=== PATIENT | male | born 1995 | race Caucasian/White ===

== ENCOUNTER 2023-10-15 20:25 | Emergency (ER) | payer OTHER, SELFPAY ==
[2023-10-15 20:26] VITALS: BP 161/97
--- NOTE | 2023-10-15 21:30 | ED.GENMED ---
History of Present Illness
General
Chief Complaint: Abdominal Symptoms
Source: patient
Exam Limitations: none
Time Seen by Provider: 10/15/23 21:06
Travel History
Have you had any contact with someone who has COVID-19?: No
Do you have any symptoms of coronavirus? Fever > 100 degrees, chills, cough, shortness of breath, sore throat, loss of taste or smell, muscle aches, or headache?: No
History of Present Illness
History of Present Illness:
This is a 28 year old male that comes in with c/o vomiting. Sates that he has been vomiting for the past couple of days. States that his sides are sore and his abd hurts. States that he also had diarrhea yesterday. States that he is nauseated and
had chills. States that he has not smoked any marijuana for a couple of days. Denies any fever, chest pain, SOB, headache, dizziness, urinary burning.
Past History
Past History
ED Past Medical History: Psychiatric (Anxiety) and Other (Constipation, )
ED Past Surgical History: None
Social History
Tobacco: Non-smoker
Alcohol: None
Drug: Marijuana (daily, cutting back)
Personal: Single
Living: with family
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
Family History
Family History: Other (Noncontributory)
Review of Systems
Review of Systems
All Other Systems: ROS reviewed and negative except as documented in HPI and ROS
Constitutional: Reports chills; Denies fever
EENT: Reports no symptoms
Respiratory: Reports no symptoms; Denies cough or trouble breathing
Cardiac: Reports no symptoms; Denies chest pain
ABD/GI: Reports abdominal pain, nausea, vomiting and diarrhea
: Reports no symptoms; Denies dysuria, frequency or urgency
Musculoskeletal: Reports no symptoms
Skin: Reports no symptoms
Neurological: Reports no symptoms; Denies dizzy or headache
Psychiatric: Reports no symptoms
Phy Exam
General Physical Exam
General Presentation: no apparent distress
General age: appears stated age
General Skin: warm and dry
General Habitus: normal
General Mental: alert and anxious
General Hydration: appears well hydrated
ENT Exam
ENT Exam: TM's normal, pharynx normal and neck supple
Eye Exam
Eye Exam: EOMI
Cardiovascular Exam
Cardiovascular Exam: regular rate/rhythm, no edema, no murmur and normal peripheral pulses
Pulmonary Exam
Pulmonary Exam: lungs clear, no respiratory distress, no rales, chest non tender, no crackles, no rhonchi, no wheezing and no cough
Gastrointestinal Exam
Gastrointestinal Exam: normal bowel sounds, non tender, soft, no organomegaly, no pulsatile mass and non distended
Musculoskeletal Exam
Musculoskeletal Exam: full ROM and no edema
Skin Exam
Skin Exam: normal color, warm/dry, no rash and no petechia
Psychiatric Exam
Psychiatric Exam: normal mood/affect
Course
Orders/Labs/Results
Orders:
Orders
10/15/23 21:23
0.9% Sodium Chloride 1000 ml [Nss] 1,000 ml IV BOLUS
Diphenhydramine [Benadryl] 25 mg IV NOW STA
Ondansetron Injectable [Zofran] 8 mg IV NOW STA
10/15/23 21:38
Complete Blood Count/With Diff Urgent
Comprehensive Metabolic Panel Urgent
10/15/23 22:42
Famotidine [Pepcid] 20 mg IV NOW STA
Haloperidol Lactate [Haldol] 2 mg IV NOW STA
10/15/23 22:59
Electrocardiogram (*1) Urgent
Reason for Study: QTc Monitoring
EKG- Treatment ONCE
10/16/23 00:23
CT Abd/pelvis W Iv Cont Urgent
Comment:
Reason For Exam: Generalized abd pain.
10/16/23 00:34
0.9% Sodium Chloride 1000 ml [Nss] 1,000 ml IV BOLUS
Abnormal Lab Results
10/15/23
21:38
WBC 28.1 H 10^3/uL
(4.8-10.8)
MCV 78.7 L fL
(80.0-94.0)
Plt Count 409 H 10^3/uL
(130-400)
MPV 10.5 H fL
(7.4-10.4)
Abs Immat Gran (auto) 0.2 H 10^3/uL
(0-0.05)
Absolute Neuts (auto) 23.8 H 10^3/uL
(1.4-6.5)
Absolute Monos (auto) 2.2 H 10^3/uL
(0.1-0.6)
Immature Gran % 0.6 H %
(0-0.5)
Neutrophils % 84.4 H %
(42.2-75.2)
Lymphocytes % 6.9 L %
(20.5-51.1)
Sodium 131 L mmol/L
(135-145)
Potassium 3.4 L mmol/L
(3.5-5.1)
Chloride 86 L mmol/L
(98-107)
BUN 25 H mg/dl
(9-20)
Creatinine 1.8 H mg/dL
(0.7-1.3)
Glucose 122 H mg/dl
(70-99)
Calcium 10.9 H mg/dl
(8.4-10.2)
ALT 52 H U/L
(0-50)
Total Protein 9.0 H g/dl
(6.3-8.2)
Albumin 5.5 H g/dl
(3.5-5.0)
10/15/23 21:38
10/15/23 21:38
Leukocytosis, Plt slightly elevated, Sodium slightly low. Chloride low. Dehydration. Glucose nonfasting. calcium slightly elevated. AST slightly elevated. Total protein elevation. Albumin slightly elevated. Anion gap 20
Vital Signs
Initial and Last Documented VS:
Initial Vital Signs
Temp Pulse Resp BP Pulse Ox
98.9 F 121 16 161/97 98
10/15/23 20:26 10/15/23 20:26 10/15/23 20:26 10/15/23 20:26 10/15/23 20:26
Last Documented Vital Signs
Temp Pulse Resp BP Pulse Ox
98.9 F 103 18 121/76 95
10/15/23 20:26 10/16/23 00:16 10/16/23 00:16 10/16/23 00:16 10/16/23 00:16
Sole Dyer consulted with Physician
Sole Dyer consulted with physician?: Yes
Name of Physician Consulted: Dr Olson
MDM/Problems Addressed
Differential Diagnosis Includes:
Viral GI syndrome, Marijuana use
MDM/Problems Addressed:
This is a 28 year old male that comes in with c/o vomiting for the past 2 days. states that he has been cutting back on his marijuana useage and that he has not smoked in2 days. States that he has been vomiting for 2 days.
Will check labs, Give IV fluids and Antiemetics.
Back into see patent. Patient states that he is still nauseated and he just vomited. States that he has had Haldol in the past and that this really helps. Reassessed patient abd and patient is nontender. Explained that his WBC are elevated but this
is most likely from all the vomiting. Will recheck after medicated
Back into see patient. Patient states that he is feeling much better and ready to go home. States that he does have Zofran at home for any further nausea/ vomiting. Patient to return with any concerns.
Discussed labs with Dr. Olson and patient complaints. State that she would prefer patient has a CT of the abd/pelvis before discharge due to elevated WBC's. Will give second liter of fluid and get CT scan.
Chronic conditions affecting care: Psychiatric illness
Acute Exacerbation and/or Progression of Chronic Illness: Psychiatric illness
*Radiology
Radiology exam reviewed: radiology read reviewed (CT night hawk- No acute ab normality within the abd or pelvis. No bowel obstruction. Normal gallbladder and appendix. Incidentals: No obstructive uropathy. No hepatic or pancreatic mass. No abd
aortic aneurysm. No acute osseous abnormality. No acute abnormality with in the visualized lungs. No ) and other (CT jw -No acute abnormality within the visualized soft tissues)
*Pulse Oximetry
Patient hypoxic: no
*EKG
Interpreted by ED Provider?: NA
Rate: EKG- N/A
*Regrader Interpretation
Rate: Regrader- N/A
*Critical Care Note
Total Time (30-74mins, 75-104mins- exclusive of procedures): Not Applicable
ED Attending Note
-
Portions of this chart may have been created with voice recognition software.� Occasional wrong word or��sound alike� substitutions may have occurred due to the inherent limitations of voice recognition software.
Discharge Plan
Departure
Patient Disposition: Home (Routine Discharge)
Date of Disposition: 10/16/23
Time of Disposition: 00:12
Patient with high blood pressure during this ER visit?: Yes
Condition: Good
Covid-19: Not Applicable
Discharge Problem:
Nausea & vomiting, Dehydration
Instructions: Dehydration, Adult (DC), Nausea and Vomiting, Adult (DC), BLOOD PRESSURE
Prescriptions:
No Action
famotidine 20 mg tablet
20 mg PO DAILYPRN PRN (Reason: GERD)
polyethylene glycol 3350 [Miralax] 17 gram Powder In Packet
17 g PO PRN PRN (Reason: constipation)
Referrals:
Eugene Connolly MD [Family Provider] - Call in 1-3 days for appt
Activity Restrictions/Additional Instructions:
As discussed, your blood work shows that your WBC are elevated. This is most likely due to all the vomiting or a viral syndrome. Please increase your water intake to 8-8oz glasses daily but take it slow. Use the Zofran that you have at home for
nausea/ vomiting. Follow up with the family doctor for recheck. IF YOU HAVE ANY OTHER CONCERNS PLEASE RETURN TO THE EMERGENCY ROOM.
Interventions
Interventions:
*Risk Screen - Suicide Last Done: 10/15/23 20:26
*General Assessment Last Done: 10/15/23 23:35
*Neglect/Abuse Screening Last Done: 10/15/23 20:26
ED- Fall Risk Assessment Last Done: 10/15/23 23:35
*ED COVID-19 Vaccine History Last Done: 10/15/23 20:26
RF-Torsos-Hkgjktxmyt Assessment Last Done: 10/15/23 21:43
[2023-10-15] MEDS: NSS 1000 IV (21:38)
[2023-10-15] MEDS: BENADRYL 25 MG IV (21:39)
[2023-10-15] MEDS: ZOFRAN 8 MG IV (21:39)
[2023-10-15 21:48] LABS: % Basophils 0.2 % (0-2); % Immature Granulocytes 0.6 % (0-0.5); % Lymphocytes 6.9 % (20.5-51.1); % Monocytes 7.9 % (1.7-9.3); % Neutrophils 84.4 % (42.2-75.2); Absolute Basophils 0.1 10^3/uL (0-0.2); Absolute Immature Granulocytes 0.2 10^3/uL (0-0.05); Absolute Lymphocytes 1.9 10^3/uL (1.2-3.4); Absolute Monocytes 2.2 10^3/uL (0.1-0.6); Absolute Neutrophils 23.8 10^3/uL (1.4-6.5); Hematocrit 43.5 % (39.0-52.0); Hemoglobin 16.1 g/dL (13.0-18.0); Mean Corpuscular Hgb 29.1 pg (27.0-31.0); Mean Corpuscular Volume 78.7 fL (80.0-94.0); Mean Platelet Volume 10.5 fL (7.4-10.4); Nucleated Red Blood Cells % 0 % (-); Platelet Count 409 10^3/uL (130-400); Red Blood Cell Count 5.53 10^6/uL (4.70-6.10); Red Cell Dist. Width 12.7 % (11.5-14.5); White Blood Cell Count 28.1 10^3/uL (4.8-10.8)
[2023-10-15 22:27] LABS: ALT (SGPT) 52 U/L (0-50); AST (SGOT) 38 U/L (17-59); Albumin 5.5 g/dl (3.5-5.0); Alkaline Phosphatase 107 U/L (38-126); Blood Urea Nitrogen 25 mg/dl (9-20); Calcium 10.9 mg/dl (8.4-10.2); Carbon Dioxide 25 mmol/L (22-30); Chloride 86 mmol/L (98-107); Estimated Creatinine Clearance 60 ml/min; Glucose 122 mg/dl (70-99); Potassium 3.4 mmol/L (3.5-5.1); Sodium 131 mmol/L (135-145); Total Bilirubin 1.2 mg/dl (0.2-1.3); eGFR 51.93
[2023-10-15] MEDS: PEPCID 20 MG IV (22:58)
[2023-10-15] MEDS: HALDOL 2 MG IV (22:58)
[2023-10-16 00:16] VITALS: BP 121/76
[2023-10-16] MEDS: NSS 1000 IV (00:34)
[2023-10-16 01:30] VITALS: BP 136/77
== END 2023-10-16 01:31 | disposition home or self-care (01) ==
LOC: EMR 20:25
PROVIDERS: Clinical Nurse Specialist Family Health; EMERGENCY PHYSICIAN Emergency Medicine; FAMILY PHYSICIAN Family Medicine
DX: R11.2 Nausea with vomiting, unspecified (principal); E86.0 Dehydration; R03.0 Elevated blood-pressure reading, without diagnosis of hypertension
CPT/HCPCS: 99285; 96374; 96375 ×3; 96361 ×2; 74177; 80053; 85025; 93005; Q9967

== ENCOUNTER 2023-12-04 04:07 | Emergency (ER) | payer OTHER, SELFPAY ==
[2023-12-04 04:07] VITALS: BMI 29.9
[2023-12-04 04:11] VITALS: BP 180/110
--- NOTE | 2023-12-04 04:38 | ED.GENMED ---
History of Present Illness
<ABBI Segura - Last Filed: 12/04/23 05:57>
General
Chief Complaint: Abdominal Symptoms
Time Seen by Provider: 12/04/23 04:19
Travel History
Have you had any contact with someone who has COVID-19?: No
Do you have any symptoms of coronavirus? Fever > 100 degrees, chills, cough, shortness of breath, sore throat, loss of taste or smell, muscle aches, or headache?: No
History of Present Illness
History of Present Illness:
Pt is a 28-year-old male with past medical history of chronic marijuana and cannabis hyperemesis syndrome presenting to the ER for unremitting nausea and vomiting x 2 days. He states he has not been able to keep food or liquids down and has thrown
up 'hundreds of times today'. He reports intermittent abdominal pain and cramping x 1 day, in addition to cramping throughout his legs. He reports chills and feels like he can only take shallow breaths due to his abdominal pain induced from
vomiting. He denies fever, cough, muscle aches, sore throat, congestion, diarrhea, constipation, or headache. Tried taking a liquid antacid at home without relief. He reports these symptoms occur every few months. He reports regular marijuana use.
Past History
<ABBI Segura - Last Filed: 12/04/23 05:57>
Past History
ED Past Medical History: Psychiatric (Anxiety) and Other (Constipation, )
ED Past Surgical History: None
Social History
Tobacco: Non-smoker
Alcohol: None
Drug: Marijuana (daily, cutting back)
Personal: Single
Living: with family
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
Family History
Family History: Other (Noncontributory)
Review of Systems
<ABBI Segura - Last Filed: 12/04/23 05:57>
Review of Systems
All Other Systems: Not applicable
Constitutional: Reports chills
EENT: Reports no symptoms
Respiratory: Reports trouble breathing
Cardiac: Reports no symptoms
ABD/GI: Reports abdominal pain, nausea and vomiting
: Reports no symptoms
Musculoskeletal: Reports other (muscle cramping)
Skin: Reports no symptoms
Neurological: Reports no symptoms
Endocrine: Reports no symptoms
Hematologic/Lymphatic: Reports no symptoms
Psychiatric: Reports no symptoms
Phy Exam
<ABBI Segura - Last Filed: 12/04/23 05:57>
General Physical Exam
General Presentation: mild distress
General age: appears stated age
General Skin: warm
General Habitus: normal
General Mental: alert
General Hydration: dry mucous membranes and poor skin turgor
ENT Exam
ENT Exam: neck supple and normocephalic
Eye Exam
Eye Exam: PERRL and EOMI
Cardiovascular Exam
Cardiovascular Exam: no edema, no gallop, no murmur, normal peripheral pulses and tachycardia
Pulmonary Exam
Pulmonary Exam: lungs clear, no rales, chest non tender, no crackles, no rhonchi, no wheezing and no cough
Respirations: mild increase in effort
Gastrointestinal Exam
Gastrointestinal Exam: normal bowel sounds, soft, non distended and tender
Palpation: generalized: Mild tenderness
Neurological Exam
Neurological Exam: alert and oriented x3
Musculoskeletal Exam
Musculoskeletal Exam: no edema
Psychiatric Exam
Psychiatric Exam: normal mood/affect
Course
<ABBI Segura - Last Filed: 12/04/23 05:57>
Orders/Labs/Results
Orders:
Orders
12/04/23 04:33
Electrocardiogram (*1) Urgent
Reason for Study: Other
Other Reason for Exam: Respiratory Distress
EKG- Treatment ONCE
IV Insert/Care/Rem.- Treatment PRN
12/04/23 04:44
Famotidine [Pepcid] 20 mg IV NOW STA
Haloperidol Lactate [Haldol] 2 mg IV NOW STA
12/04/23 05:20
0.9% Sodium Chloride 1000 ml [Nss] 1,000 ml IV BOLUS
12/04/23 06:05
CBC/With Diff [Complete Blood Count/With Diff] Urgent
CMP [Comprehensive Metabolic Panel] Urgent
12/04/23 06:21
Diphenhydramine [Benadryl] 50 mg .ROUTE .STK-MED ONE
12/04/23 06:23
Diphenhydramine [Benadryl] 50 mg IV NOW STA
Abnormal Lab Results
12/04/23
06:05
WBC 22.3 H 10^3/uL
(4.8-10.8)
MPV 12.0 H fL
(7.4-10.4)
Abs Immat Gran (auto) 0.1 H 10^3/uL
(0-0.05)
Absolute Neuts (auto) 17.6 H 10^3/uL
(1.4-6.5)
Absolute Monos (auto) 2.3 H 10^3/uL
(0.1-0.6)
Immature Gran % 0.6 H %
(0-0.5)
Neutrophils % 78.9 H %
(42.2-75.2)
Lymphocytes % 10.2 L %
(20.5-51.1)
Monocytes % 10.2 H %
(1.7-9.3)
Sodium 131 L mmol/L
(135-145)
Chloride 86 L mmol/L
(98-107)
Carbon Dioxide 17 L mmol/L
(22-30)
BUN 34 H mg/dl
(9-20)
Creatinine 3.2 H mg/dL
(0.7-1.3)
Glucose 117 H mg/dl
(70-99)
Calcium 11.2 H mg/dl
(8.4-10.2)
AST 60 H U/L
(17-59)
ALT 74 H U/L
(0-50)
Alkaline Phosphatase 127 H U/L
(38-126)
Total Protein 10.5 H g/dl
(6.3-8.2)
Albumin > 6.0 H g/dl
(3.5-5.0)
12/04/23 06:05
12/04/23 06:05
Vital Signs
Initial and Last Documented VS:
Initial Vital Signs
Temp Pulse Resp BP Pulse Ox
97.3 F 133 26 180/110 97
12/04/23 04:11 12/04/23 04:11 12/04/23 04:11 12/04/23 04:11 12/04/23 04:11
Last Documented Vital Signs
Temp Pulse Resp BP Pulse Ox
97.3 F 111 18 135/86 98
12/04/23 04:11 12/04/23 06:00 12/04/23 06:00 12/04/23 06:00 12/04/23 06:00
<Elliot De Oliveira, DO - Last Filed: 12/04/23 07:06>
Orders/Labs/Results
Orders:
Orders
12/04/23 04:33
Electrocardiogram (*1) Urgent
Reason for Study: Other
Other Reason for Exam: Respiratory Distress
EKG- Treatment ONCE
IV Insert/Care/Rem.- Treatment PRN
12/04/23 04:44
Famotidine [Pepcid] 20 mg IV NOW STA
Haloperidol Lactate [Haldol] 2 mg IV NOW STA
12/04/23 05:20
0.9% Sodium Chloride 1000 ml [Nss] 1,000 ml IV BOLUS
12/04/23 06:05
CBC/With Diff [Complete Blood Count/With Diff] Urgent
CMP [Comprehensive Metabolic Panel] Urgent
12/04/23 06:21
Diphenhydramine [Benadryl] 50 mg .ROUTE .STK-MED ONE
12/04/23 06:23
Diphenhydramine [Benadryl] 50 mg IV NOW STA
Abnormal Lab Results
12/04/23
06:05
WBC 22.3 H 10^3/uL
(4.8-10.8)
MPV 12.0 H fL
(7.4-10.4)
Abs Immat Gran (auto) 0.1 H 10^3/uL
(0-0.05)
Absolute Neuts (auto) 17.6 H 10^3/uL
(1.4-6.5)
Absolute Monos (auto) 2.3 H 10^3/uL
(0.1-0.6)
Immature Gran % 0.6 H %
(0-0.5)
Neutrophils % 78.9 H %
(42.2-75.2)
Lymphocytes % 10.2 L %
(20.5-51.1)
Monocytes % 10.2 H %
(1.7-9.3)
Sodium 131 L mmol/L
(135-145)
Chloride 86 L mmol/L
(98-107)
Carbon Dioxide 17 L mmol/L
(22-30)
BUN 34 H mg/dl
(9-20)
Creatinine 3.2 H mg/dL
(0.7-1.3)
Glucose 117 H mg/dl
(70-99)
Calcium 11.2 H mg/dl
(8.4-10.2)
AST 60 H U/L
(17-59)
ALT 74 H U/L
(0-50)
Alkaline Phosphatase 127 H U/L
(38-126)
Total Protein 10.5 H g/dl
(6.3-8.2)
Albumin > 6.0 H g/dl
(3.5-5.0)
12/04/23 06:05
12/04/23 06:05
Vital Signs
Initial and Last Documented VS:
Initial Vital Signs
Temp Pulse Resp BP Pulse Ox
97.3 F 133 26 180/110 97
12/04/23 04:11 12/04/23 04:11 12/04/23 04:11 12/04/23 04:11 12/04/23 04:11
Last Documented Vital Signs
Temp Pulse Resp BP Pulse Ox
97.3 F 111 18 135/86 98
12/04/23 04:11 12/04/23 06:00 12/04/23 06:00 12/04/23 06:00 12/04/23 06:00
<ABBI Segura - Last Filed: 12/04/23 05:57>
MDM/Problems Addressed
Differential Diagnosis Includes:
cannabis hyperemesis syndrome, gastritis, flu, appendicitis, diverticulitis
MDM/Problems Addressed:
nausea and vomiting
<ABBI Segura - Last Filed: 12/04/23 05:57>
*EKG
Interpreted by ED Provider?: Yes
EKG Intrepretation Date: 12/04/23
EKG Intrepretation Time: 04:54
Comparison EKG: no changes
Heart Rate: 120
Rate: tachycardiac
Rhythm: sinus
Interval: normal QT interval
*Critical Care Note
Total Time (30-74mins, 75-104mins- exclusive of procedures): Not Applicable
Data Reviewed
Review of Other/Old Records Reveals: Records
Source: records
<ABBI Segura - Last Filed: 12/04/23 05:57>
Update Note
Update Note:
05:56 Pt reports he has not vomited since arrival and is feeling better - OUMAR
ED Attending Note
<ABBI Segura - Last Filed: 12/04/23 05:57>
-
Portions of this chart may have been created with voice recognition software.� Occasional wrong word or��sound alike� substitutions may have occurred due to the inherent limitations of voice recognition software.
<Elliot De Oliveira DO - Last Filed: 12/04/23 07:06>
ED Attending Note
Patient seen and examined by attending physician: Yes
I performed the substantive portion of visit, reviewed & personally made and approve the management plan that is documented in note by myself or OCTAVIANO.: Yes
ED Attending Note:
28-year-old male history of cannabinoid hyperemesis syndrome presents with subacute nausea vomiting. His symptoms began on Thursday. Denies any hematemesis. He states that he does smoke marijuana once to twice a day or more. Patient denies fever
or chills. Does report some abdominal pain. He states that he has vomited multiple times throughout the day. Patient was seen in conjunction with the PA student. I have reviewed and agree with the history and treatment plan presented. On my
independent physical exam, patient is awake, alert, and oriented x3, moderate acute distress. Heart is regular rate and rhythm. Lungs clear to auscultation bilaterally without wheezes rales or rhonchi. Abdomen is soft and nontender.
12/04/2023 0658 AM: Reviewed lab work with patient. It appears worse than last visit. It was taken before patient got fluids. Patient states that he feels much better. I did offer him admission for at least a repeat lab test to see if his kidney
function returns to normal. Patient refuses. He will follow-up with his family doctor. Patient does understand that he needs to follow-up. He will remain hydrated with oral hydration. He will attempt to cut back on his marijuana usage. I did
discuss return to ER instructions with him and his father. They verbalized good understanding and will be discharged in improved condition.
Discharge Plan
Departure
Patient Disposition: Home (Routine Discharge)
Date of Disposition: 12/04/23
Time of Disposition: 07:00
Patient with high blood pressure during this ER visit?: Yes
Condition: Good
Discharge Problem:
Cannabinoid hyperemesis syndrome, Acute renal failure (ARF), Acute dehydration
Instructions: Dehydration, Adult (DC), Acute Nausea and Vomiting, BLOOD PRESSURE
Prescriptions:
No Action
famotidine 20 mg tablet
20 mg PO DAILYPRN PRN (Reason: GERD)
Referrals:
Eugene Connolly MD [Family Provider] - Tomorrow
Activity Restrictions/Additional Instructions:
It was a pleasure meeting you and taking part in your care. We hope for your continued healing and wellness.
Please read discharge instructions in their entirety. However, they are for general education and may not describe your exact diagnosis at discharge. Information on your ER visit and medical conditions were discussed with you along with appropriate
follow up information...
If indicated, please take your medications as instructed and indicated on discharge paperwork.
Please schedule a follow up appointment as directed. Call to schedule an appointment
Please return to the emergency department with ANY change in, persisting, or worsening of symptoms. If any of your symptoms do not improve, or persist, or become more severe within 6-12 hours, please return to the emergency department for further
care.
Please return to the emergency department if you develop a headache, neck pain/stiffness, fever greater than 100.4F, chest pain, shortness of breath, persistent nausea, vomiting, slurred speech, difficulty walking, numbness/tingling, weakness, signs
of infection or any other symptoms that are worrisome to you.
If you have any questions or concerns please do not hesitate to call the Hospital at or E-mail me directly at [email or web address]
Interventions
Interventions:
*Risk Screen - Suicide Last Done: 12/04/23 04:11
*General Assessment Last Done: 12/04/23 04:11
*Neglect/Abuse Screening Last Done: 12/04/23 04:11
ED- Fall Risk Assessment Last Done: 12/04/23 04:11
*ED COVID-19 Vaccine History Last Done: 12/04/23 04:11
AL-Fritrs-Lmondcmybo Assessment Last Done: 12/04/23 04:44
Discharge Date and Time
Print Language: ROMANIAN
[2023-12-04] MEDS: PEPCID 20 MG IV (04:53)
[2023-12-04] MEDS: HALDOL 2 MG IV (04:53)
[2023-12-04] MEDS: NSS 1000 IV (05:20)
[2023-12-04 06:00] VITALS: BP 135/86
[2023-12-04 06:13] LABS: % Basophils 0.1 % (0-2); % Immature Granulocytes 0.6 % (0-0.5); % Lymphocytes 10.2 % (20.5-51.1); % Monocytes 10.2 % (1.7-9.3); % Neutrophils 78.9 % (42.2-75.2); Absolute Immature Granulocytes 0.1 10^3/uL (0-0.05); Absolute Lymphocytes 2.3 10^3/uL (1.2-3.4); Absolute Monocytes 2.3 10^3/uL (0.1-0.6); Absolute Neutrophils 17.6 10^3/uL (1.4-6.5); Hematocrit 47.6 % (39.0-52.0); Mean Corp Hgb Conc. 35.7 g/dL (33.0-37.0); Mean Corpuscular Hgb 28.6 pg (27.0-31.0); Mean Corpuscular Volume 80.1 fL (80.0-94.0); Nucleated Red Blood Cells % 0 % (-); Platelet Count 396 10^3/uL (130-400); Red Blood Cell Count 5.94 10^6/uL (4.70-6.10); Red Cell Dist. Width 12.7 % (11.5-14.5); White Blood Cell Count 22.3 10^3/uL (4.8-10.8)
[2023-12-04] MEDS: BENADRYL 50 MG IV (06:24)
[2023-12-04 06:33] LABS: ALT (SGPT) 74 U/L (0-50); AST (SGOT) 60 U/L (17-59); Albumin > 6.0 g/dl (3.5-5.0); Alkaline Phosphatase 127 U/L (38-126); Blood Urea Nitrogen 34 mg/dl (9-20); Calcium 11.2 mg/dl (8.4-10.2); Carbon Dioxide 17 mmol/L (22-30); Chloride 86 mmol/L (98-107); Estimated Creatinine Clearance 35 ml/min; Glucose 117 mg/dl (70-99); Potassium 3.7 mmol/L (3.5-5.1); Sodium 131 mmol/L (135-145); Total Bilirubin 1.1 mg/dl (0.2-1.3); Total Protein 10.5 g/dl (6.3-8.2); eGFR 26.04
[2023-12-04 07:00] VITALS: BP 140/96
[2023-12-04 07:17] VITALS: BP 140/96
== END 2023-12-04 07:28 | disposition home or self-care (01) ==
LOC: EMR 04:07
PROVIDERS: EMERGENCY PHYSICIAN Student in an Organized Health Care Education/Training Program; FAMILY PHYSICIAN Family Medicine
DX: R11.2 Nausea with vomiting, unspecified (principal); F12.90 Cannabis use, unspecified, uncomplicated; R10.9 Unspecified abdominal pain; R25.2 Cramp and spasm; E86.0 Dehydration; R68.83 Chills (without fever); N17.9 Acute kidney failure, unspecified; R03.0 Elevated blood-pressure reading, without diagnosis of hypertension; F41.9 Anxiety disorder, unspecified
CPT/HCPCS: 99284; 96374; 96375 ×2; 96361; 80053; 85025; 93005

== ENCOUNTER 2024-05-24 10:36 | Emergency (ER) | payer OTHER, SELFPAY ==
[2024-05-24] VITALS (7 sets, daily range): BP systolic 120–137; BP diastolic 81–97; BMI 26.9
--- NOTE | 2024-05-24 11:01 | ED.GENMED ---
History of Present Illness
<Skylar Arauz PA-C - Last Filed: 05/24/24 17:30>
General
Chief Complaint: Abdominal Symptoms
Source: patient
Exam Limitations: none
Time Seen by Provider: 05/24/24 10:41
Nursing documentation reviewed up to this point in time: agreed with
History of Present Illness
History of Present Illness:
Patient is a 28-year-old male presenting to the emergency department via EMS for evaluation of persistent nausea/vomiting. Symptoms initially began Thursday evening and have been persistent over the past 48 hours. Patient has been unable to any
food/liquid down since. He denies any urinary burning, although does report less frequent urination which is much darker in color. Patient denies any hematemesis. Patient denies any fever, chills, abdominal pain, chest pain, shortness of breath,
or headache.
No known sick contacts.
Patient does report smoking '2 bowls a day' of marijuana. Patient has had multiple episodes of cannabinoid hyperemesis syndrome and states this feels very similar to prior episode
Past History
<Skylar Arauz PA-C - Last Filed: 05/24/24 17:30>
Past History
ED Past Medical History: Psychiatric (Anxiety) and Other (Constipation, )
ED Past Surgical History: None
Social History
Tobacco: Non-smoker
Alcohol: None
Drug: Marijuana (daily, cutting back)
Personal: Single
Living: with family
Employment: Not employed ([employer])
Family History
Family History: Other (Noncontributory)
Review of Systems
<Skylar Arauz PA-C - Last Filed: 05/24/24 17:30>
Review of Systems
Allergies reviewed?: Yes
All Other Systems: ROS reviewed and negative except as documented in HPI and ROS
Phy Exam
<Skylar Arauz PA-C - Last Filed: 05/24/24 17:30>
Physical Exam
Physical Exam:
Vitals: Tachycardic, otherwise vital signs stable. Afebrile
General: Patient is in no acute distress. Nontoxic appearing
Skin: Warm and dry, no rashes or lesions
Head: Normocephalic, atraumatic
Eyes: Sclera nonicteric. EOMs intact. No nystagmus.
Throat: Dry mucous membranes. Protecting airway
Neck: Normal ROM, no cervical spine tenderness, no meningismus
Cardiac: Tachycardic, normal rhythm, no murmurs.
Pulm: Normal respiratory effort, no wheezes, rales, rhonchi heard on exam.
Abdomen: Abdomen soft throughout. No abdominal tenderness. No rebound tenderness or guarding. No CVA tenderness
Extremities: No evidence of cyanosis or edema. Palpable distal pulses. Palpable distal pulses.
Neuro: Grossly intact.
Psychiatric: Normal affect.
Course
<Skylar Arauz PA-C - Last Filed: 05/24/24 17:30>
Orders/Labs/Results
Orders:
Orders
05/24/24 10:55
0.9% Sodium Chloride 1000 ml [Nss] 1,000 ml IV BOLUS
Famotidine [Pepcid] 20 mg IV NOW STA
Haloperidol Lactate [Haldol] 2 mg IV NOW STA
05/24/24 10:57
Electrocardiogram (*1) Urgent
Reason for Study: QTc Monitoring
EKG- Treatment ONCE
05/24/24 11:15
Complete Blood Count/With Diff Urgent
Comprehensive Metabolic Panel Urgent
05/24/24 12:16
0.9% Sodium Chloride 1000 ml [Nss] 1,000 ml IV BOLUS
Abnormal Lab Results
05/24/24
11:15
WBC 22.6 H 10^3/uL
(4.8-10.8)
MCV 79.1 L fL
(80.0-94.0)
MCHC 37.4 H g/dL
(33.0-37.0)
MPV 11.3 H fL
(7.4-10.4)
Abs Immat Gran (auto) 0.5 H 10^3/uL
(0-0.05)
Absolute Neuts (auto) 17.0 H 10^3/uL
(1.4-6.5)
Absolute Monos (auto) 2.8 H 10^3/uL
(0.1-0.6)
Immature Gran % 2.2 H %
(0-0.5)
Lymphocytes % 10.2 L %
(20.5-51.1)
Monocytes % 12.2 H %
(1.7-9.3)
Sodium 134 L mmol/L
(135-145)
Potassium 3.3 L mmol/L
(3.5-5.1)
Chloride 87 L mmol/L
(98-107)
BUN 31 H mg/dl
(9-20)
Creatinine 2.3 H mg/dL
(0.7-1.3)
Glucose 128 H mg/dl
(70-99)
Calcium 11.1 H mg/dl
(8.4-10.2)
ALT 79 H U/L
(0-50)
Total Protein 8.7 H g/dl
(6.3-8.2)
Albumin 5.8 H g/dl
(3.5-5.0)
05/24/24 11:15
05/24/24 11:15
Vital Signs
Initial and Last Documented VS:
Initial Vital Signs
BP
132/81
05/24/24 10:44
Last Documented Vital Signs
Temp Pulse Resp BP Pulse Ox
98.5 F 98 28 134/95 98
05/24/24 10:45 05/24/24 14:45 05/24/24 11:15 05/24/24 14:00 05/24/24 14:45
<Amber Paige, DO - Last Filed: 05/24/24 14:18>
Orders/Labs/Results
Orders:
Orders
05/24/24 10:55
0.9% Sodium Chloride 1000 ml [Nss] 1,000 ml IV BOLUS
Famotidine [Pepcid] 20 mg IV NOW STA
Haloperidol Lactate [Haldol] 2 mg IV NOW STA
05/24/24 10:57
Electrocardiogram (*1) Urgent
Reason for Study: QTc Monitoring
EKG- Treatment ONCE
05/24/24 11:15
Complete Blood Count/With Diff Urgent
Comprehensive Metabolic Panel Urgent
05/24/24 12:16
0.9% Sodium Chloride 1000 ml [Nss] 1,000 ml IV BOLUS
Abnormal Lab Results
05/24/24
11:15
WBC 22.6 H 10^3/uL
(4.8-10.8)
MCV 79.1 L fL
(80.0-94.0)
MCHC 37.4 H g/dL
(33.0-37.0)
MPV 11.3 H fL
(7.4-10.4)
Abs Immat Gran (auto) 0.5 H 10^3/uL
(0-0.05)
Absolute Neuts (auto) 17.0 H 10^3/uL
(1.4-6.5)
Absolute Monos (auto) 2.8 H 10^3/uL
(0.1-0.6)
Immature Gran % 2.2 H %
(0-0.5)
Lymphocytes % 10.2 L %
(20.5-51.1)
Monocytes % 12.2 H %
(1.7-9.3)
Sodium 134 L mmol/L
(135-145)
Potassium 3.3 L mmol/L
(3.5-5.1)
Chloride 87 L mmol/L
(98-107)
BUN 31 H mg/dl
(9-20)
Creatinine 2.3 H mg/dL
(0.7-1.3)
Glucose 128 H mg/dl
(70-99)
Calcium 11.1 H mg/dl
(8.4-10.2)
ALT 79 H U/L
(0-50)
Total Protein 8.7 H g/dl
(6.3-8.2)
Albumin 5.8 H g/dl
(3.5-5.0)
05/24/24 11:15
05/24/24 11:15
Vital Signs
Initial and Last Documented VS:
Initial Vital Signs
BP
132/81
05/24/24 10:44
Last Documented Vital Signs
Temp Pulse Resp BP Pulse Ox
98.5 F 98 28 134/95 98
05/24/24 10:45 05/24/24 14:45 05/24/24 11:15 05/24/24 14:00 05/24/24 14:45
<Skylar Arauz PA-C - Last Filed: 05/24/24 17:30>
MDM/Problems Addressed
Differential Diagnosis Includes:
Not limited to: Viral gastroenteritis, cannabinoid hyperemesis syndrome, etc.
MDM/Problems Addressed:
28-year-old male with persistent nausea/vomiting for the past 48 hours. No fevers or chills. No abdominal pain. Patient does smoke marijuana frequently with similar episodes of cannabinoid hyperemesis syndrome in the past. States feels similar.
Patient tachycardic on arrival likely secondary to dehydration or vomiting. Patient is afebrile. Physical exam as above. Patient in no acute distress. Abdomen is soft and nontender throughout. Mildly dry mucous membranes. Patient is perfusing
well with great distal pulses. Suspect likely cannabinoid hyperemesis syndrome versus viral gastroenteritis. Do not fact acute intra-abdominal infection given benign abdominal exam. CT abdomen not indicated at this time. EKG nonischemic. Will
give IV fluids, famotidine, Haldol. Will check basic labs. Will reassess.
Chronic conditions affecting care:
Cannabinoid hyperemesis syndrome
Acute Exacerbation and/or Progression of Chronic Illness:
Acute nausea/vomiting
<Skylar Arauz PA-C - Last Filed: 05/24/24 17:30>
*Pulse Oximetry
Patient hypoxic: no
*EKG
Interpreted by ED Provider?: Yes
EKG Intrepretation Date: 05/24/24
Interpretation: abnormal
Heart Rate: 118
Rate: tachycardiac
Rhythm: sinus
[place]: normal axis
QRS Pattern: normal QRS
Ischemia: no ischemia
*Housing Coordinator Interpretation
Rate: normal and bradycardiac
Interpretation: normal
Heart Rate: 98
Rhythm: sinus
*Critical Care Note
Total Time (30-74mins, 75-104mins- exclusive of procedures): Not Applicable
<Skylar Arauz PA-C - Last Filed: 05/24/24 17:30>
Update Note
Update Note:
Update 1:03 PM: Labs reviewed. Leukocytosis of 22.6�suspect likely reactive. Signs of dehydration noted on labs. DANAE with creatinine of 2.3 suspect prerenal secondary to dehydration/hypovolemia. Will replete with second liter of fluids. Into
reassess patient at bedside�patient is sleeping comfortably. Patient states feeling better and has had no episodes of vomiting.
Update: Patient has received 2 full liters of fluids. Patient remains well-appearing and has had no episodes of vomiting. Patient tolerating p.o. liquids. Patient's abdomen remains soft and nontender. Very low suspicion for acute intra-abdominal
infection. Suspect leukocytosis is reactive secondary to vomiting. Given patient's level of dehydration and DANAE�did offer patient admission for repeat lab work and trending of values, along with IV hydration. Patient declines admission and would
like to be discharged. He insist that he will follow-up with his primary care for repeat lab work to ensure kidney function improves. Recommended adequate oral hydration. Patient does have Zofran at home that he can take as needed for nausea.
Return precautions discussed with patient at length putting fevers, worsening abdominal pain, signs of severe dehydration. Patient stable for discharge. Patient seen with attending physician.
ED Attending Note
<Skylar Arauz PA-C - Last Filed: 05/24/24 17:30>
-
Portions of this chart may have been created with voice recognition software.� Occasional wrong word or��sound alike� substitutions may have occurred due to the inherent limitations of voice recognition software.
<Amber Paige DO - Last Filed: 05/24/24 14:18>
ED Attending Note
Patient seen and examined by attending physician: Yes
I performed the substantive portion of visit, reviewed & personally made and approve the management plan that is documented in note by myself or OCTAVIANO.: Yes
I performed a history and physical exam of patient and discussed management with resident, I reviewed resident's note and agree with documented findings and plan of care.: Yes
ED Attending Note:
28-year-old male with history of hyperemesis cannabinoid syndrome presenting to the emergency department for nausea and vomiting. Patient reports symptoms for the past 3 days. Patient feels that his symptoms are consistent with his hyperemesis,
smokes significant amount of marijuana a day. Denies associate abdominal pain. Denies chest pain or difficulty breathing contacts. Vital signs on arrival significant for tachycardia.
On exam patient is in no acute distress, nontoxic. Benign abdominal exam, no tenderness. Low suspicion for any serious intra-abdominal process or infection. Suspect hyperemesis cannabinoid syndrome. Patient has had improvement of symptoms in the
past with Haldol. Will administer and reassess for improvement.
14:00 -patient does have mild DANAE, however received 2 L of fluid, is having symptom improvement. Patient educated on importance of marijuana cessation and injury to his kidneys. Advised continued oral hydration as tolerated. Feel stable for
discharge with continued supportive therapy. Return precautions discussed and patient verbalized understanding
Discharge Plan
Departure
Patient Disposition: Home (Routine Discharge)
Date of Disposition: 05/24/24
Time of Disposition: 14:40
Patient with high blood pressure during this ER visit?: No
Discharge Problem:
Cannabinoid hyperemesis syndrome, Acute dehydration, DANAE (acute kidney injury)
Instructions: Dehydration, Adult (DC), Nausea and Vomiting, Adult (DC), BLOOD PRESSURE
Prescriptions:
No Action
famotidine 20 mg tablet
20 mg PO DAILYPRN PRN (Reason: GERD)
Referrals:
Seth Liriano PA-C [Family Provider] - Follow up in 1 week
Activity Restrictions/Additional Instructions:
RETURN TO THE EMERGENCY DEPARTMENT WITH FEVERS, PERSISTENT NAUSEA/VOMITING, SEVERE ABDOMINAL PAIN, SIGNS OF SEVERE DEHYDRATION INCLUDING LACK OF URINE PRODUCTION, ETC, WORSENING IN CURRENT SYMPTOMS, OR ANY OTHER CONCERNS
-It is very important to stay well-hydrated. You must follow-up with your primary care provider within a week to have your lab values rechecked to ensure your kidney function is improving. You can take Zofran at home as needed for nausea.
-It is important that you try to limit your marijuana
-Follow-up with PCP within the week for further evaluation and repeat lab work.
Monitor your symptoms closely return to the emergency department with any acute worsening/new symptoms
Interventions
Interventions:
*Risk Screen - Suicide Last Done: 05/24/24 10:46
*General Assessment Last Done: 05/24/24 10:46
*Neglect/Abuse Screening Last Done: 05/24/24 10:46
ED- Fall Risk Assessment Last Done: 05/24/24 10:56
*ED COVID-19 Vaccine History Last Done: 05/24/24 10:46
*Nursing Disposition Last Done: 05/24/24 14:57
TF-Tdbgfl-Hkdfhvwqke Assessment Last Done: 05/24/24 10:47
Discharge Date and Time
Discharge Date/Time: 05/24/24 14:58
Print Language: CROATIAN
[2024-05-24] MEDS: NSS 1000 IV ×2 (11:18→12:18)
[2024-05-24] MEDS: PEPCID 20 MG IV (11:18)
[2024-05-24] MEDS: HALDOL 2 MG IV (11:18)
[2024-05-24 11:40] LABS: % Basophils 0.2 % (0-2); % Immature Granulocytes 2.2 % (0-0.5); % Lymphocytes 10.2 % (20.5-51.1); % Monocytes 12.2 % (1.7-9.3); % Neutrophils 75.2 % (42.2-75.2); Absolute Immature Granulocytes 0.5 10^3/uL (0-0.05); Absolute Lymphocytes 2.3 10^3/uL (1.2-3.4); Absolute Monocytes 2.8 10^3/uL (0.1-0.6); Hematocrit 46.5 % (39.0-52.0); Hemoglobin 17.4 g/dL (13.0-18.0); Mean Corp Hgb Conc. 37.4 g/dL (33.0-37.0); Mean Corpuscular Hgb 29.6 pg (27.0-31.0); Mean Corpuscular Volume 79.1 fL (80.0-94.0); Mean Platelet Volume 11.3 fL (7.4-10.4); Nucleated Red Blood Cells % 0 % (-); Platelet Count 346 10^3/uL (130-400); Red Blood Cell Count 5.88 10^6/uL (4.70-6.10); Red Cell Dist. Width 12.8 % (11.5-14.5); White Blood Cell Count 22.6 10^3/uL (4.8-10.8)
[2024-05-24 12:00] LABS: ALT (SGPT) 79 U/L (0-50); AST (SGOT) 45 U/L (17-59); Albumin 5.8 g/dl (3.5-5.0); Alkaline Phosphatase 116 U/L (38-126); Blood Urea Nitrogen 31 mg/dl (9-20); Calcium 11.1 mg/dl (8.4-10.2); Carbon Dioxide 22 mmol/L (22-30); Chloride 87 mmol/L (98-107); Estimated Creatinine Clearance 43 ml/min; Glucose 128 mg/dl (70-99); Potassium 3.3 mmol/L (3.5-5.1); Sodium 134 mmol/L (135-145); Total Protein 8.7 g/dl (6.3-8.2)
== END 2024-05-24 14:58 | disposition home or self-care (01) ==
LOC: EMR 10:36
PROVIDERS: Physician Assistant; EMERGENCY PHYSICIAN Student in an Organized Health Care Education/Training Program; FAMILY PHYSICIAN Physician Assistant Medical
DX: R11.2 Nausea with vomiting, unspecified (principal); F12.90 Cannabis use, unspecified, uncomplicated; E86.0 Dehydration; N17.9 Acute kidney failure, unspecified
CPT/HCPCS: 99284; 96374; 96375; 96361 ×2; 80053; 85025; 93005

== ENCOUNTER 2024-08-29 08:46 | Observation (INO) | payer OTHER, SELFPAY ==
[2024-08-29] VITALS (9 sets, daily range): BP systolic 106–152; BP diastolic 63–114; BMI 26.9; BMI 27.0
--- NOTE | 2024-08-29 06:40 | ED.GENMED ---
History of Present Illness
General
Chief Complaint: Abdominal Symptoms
Source: patient, records and family
Exam Limitations: none
Time Seen by Provider: 08/29/24 06:10
Nursing documentation reviewed up to this point in time: agreed with
History of Present Illness
History of Present Illness:
29-year-old male accompanied by his mother presents for evaluation of nausea vomiting decreased p.o. intake for 24 hours history of the same diagnosed with hyperemesis cannabis syndrome, continues to smoke marijuana tells me he does not because he
likes it but no other medical reason, does not have a medical card, he gets it from friends, no alcohol, has had decreased urination no fever no diarrhea no sick contacts no raw or undercooked foods tells me Haldol usually works does not like the
way capsaicin makes his abdominal wall feel, tells me has had ultrasounds and CAT scans previously
Past History
Past History
ED Past Medical History: Psychiatric (Anxiety) and Other (Constipation, )
ED Past Surgical History: None
Social History
Tobacco: Non-smoker
Alcohol: None
Drug: Marijuana (daily, cutting back)
Personal: Single
Living: with family
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
Family History
Family History: Other (Noncontributory)
Review of Systems
Review of Systems
All Other Systems: Not applicable
Constitutional: Reports fatigue
EENT: Reports no symptoms
Respiratory: Reports no symptoms
Cardiac: Denies chest pain
ABD/GI: Reports abdominal pain, nausea and vomiting; Denies diarrhea, constipated, black stools or anorexia
: Reports no symptoms
Musculoskeletal: Reports no symptoms
Skin: Reports no symptoms
Neurological: Reports weakness
Psychiatric: Reports no symptoms
Phy Exam
Physical Exam
Physical Exam:
Physical Exam
General: 29 male not intoxicated looks uncomfortable
Neck: Dry lips sunken eyes
Heart: s1/s2 regular rate and rhythm, no murmur. equal radial pulses.
Lungs: no acute respiratory distress. clear bilaterally
Abdomen: Soft nontender no guarding or
Neuro: alert and oriented. no focal neurological deficits
Skin: no rash
Psychiatric: well kept. interactive and cooperative
Extremities: no edema.
Course
Orders/Labs/Results
Orders:
Orders
08/29/24 06:34
IV Insert/Care/Rem.- Treatment PRN
0.9% Sodium Chloride 1000 ml [Nss] 1,000 ml IV BOLUS
Haloperidol Lactate [Haldol] 3 mg IM NOW STA
Ondansetron Injectable [Zofran] 4 mg IV NOW STA
Pantoprazole [Protonix IV] 40 mg IV NOW STA
08/29/24 07:01
Complete Blood Count/With Diff Urgent
Comprehensive Metabolic Panel Urgent
Lipase Urgent
08/29/24 07:46
0.9% Sodium Chloride 1000 ml [Nss] 1,000 ml IV BOLUS
08/29/24 07:53
Bladder Scan- Treatment ONCE
Abnormal Lab Results
08/29/24
07:01
WBC 31.2 H 10^3/uL
(4.8-10.8)
RBC 6.22 H 10^6/uL
(4.70-6.10)
Plt Count 425 H 10^3/uL
(130-400)
MPV 10.9 H fL
(7.4-10.4)
Abs Immat Gran (auto) 0.9 H 10^3/uL
(0-0.05)
Absolute Neuts (auto) 26.5 H 10^3/uL
(1.4-6.5)
Absolute Monos (auto) 1.6 H 10^3/uL
(0.1-0.6)
Immature Gran % 2.8 H %
(0-0.5)
Neutrophils % 85.0 H %
(42.2-75.2)
Lymphocytes % 6.8 L %
(20.5-51.1)
Sodium 134 L mmol/L
(135-145)
Chloride 93 L mmol/L
(98-107)
Carbon Dioxide 11 L* mmol/L
(22-30)
BUN 26 H mg/dl
(9-20)
Creatinine 3.7 H mg/dL
(0.7-1.3)
Glucose 184 H mg/dl
(70-99)
Calcium 12.2 H mg/dl
(8.4-10.2)
ALT 106 H U/L
(0-50)
Alkaline Phosphatase 143 H U/L
(38-126)
Total Protein 10.2 H g/dl
(6.3-8.2)
Albumin > 6.0 H g/dl
(3.5-5.0)
08/29/24 07:01
08/29/24 07:01
Vital Signs
Initial and Last Documented VS:
Initial Vital Signs
Temp Pulse Resp BP Pulse Ox
99.1 F 144 26 152/114 97
08/29/24 05:55 08/29/24 05:55 08/29/24 05:55 08/29/24 05:55 08/29/24 05:55
Last Documented Vital Signs
Temp Pulse Resp BP Pulse Ox
99.1 F 144 26 152/114 97
08/29/24 05:55 08/29/24 05:55 08/29/24 05:55 08/29/24 05:55 08/29/24 05:55
MDM/Problems Addressed
Differential Diagnosis Includes:
Hyperemesis cannabis gastritis pancreatitis less likely biliary colic or appendicitis
MDM/Problems Addressed:
Abdominal pain nausea vomiting
Chronic conditions affecting care:
Hyperemesis cannabis
Acute Exacerbation and/or Progression of Chronic Illness:
Hyperemesis cannabis
*Pulse Oximetry
Patient hypoxic: no
*Critical Care Note
Total Time (30-74mins, 75-104mins- exclusive of procedures): Not Applicable
Update Note
Update Note:
Update labs are noted significant leukocytosis acute renal insufficiency with acidosis prior labs noted have been similar, CAT scan previously noted no renal stones, at this point I believe it is prudent to admit him to the hospital, message sent to
hospitalist and clinical support tech will continue saline hydration check bladder scan renal ultrasound look for obstruction hold on CT scanning has had leukocytosis before
Patient has refused any imaging would like to go home I strongly encouraged him to be admitted he is agreeable
ED Attending Note
-
Portions of this chart may have been created with voice recognition software.� Occasional wrong word or��sound alike� substitutions may have occurred due to the inherent limitations of voice recognition software.
Discharge Plan
Departure
Patient Disposition: Admit
Date of Disposition: 08/29/24
Time of Disposition: 07:55
Admit to: Med/Surg
Presentation/result/management discussed w/ accepting MD/DO: Hospitalist
Patient with high blood pressure during this ER visit?: Yes
Condition: Serious
Discharge Problem:
Acute dehydration, Cannabis hyperemesis syndrome concurrent with and due to cannabis abuse, Acute renal failure (ARF)
Prescriptions:
No Action
famotidine 20 mg tablet
20 mg PO DAILYPRN PRN (Reason: GERD)
Referrals:
Eugene Connolly MD [Family Provider] -
Interventions
Interventions:
*Risk Screen - Suicide Last Done: 08/29/24 05:55
*General Assessment Last Done: 08/29/24 06:04
*Neglect/Abuse Screening Last Done: 08/29/24 05:55
ED- Fall Risk Assessment Last Done: 08/29/24 07:03
*ED COVID-19 Vaccine History Last Done: 08/29/24 06:04
BJ-Nhwjum-Phzeolcvqu Assessment Last Done: 08/29/24 07:03
Discharge Date and Time
Print Language: [place] CITIZ[place]
[2024-08-29] MEDS: PROTONIX IV 40 MG IV (07:07)
[2024-08-29] MEDS: ZOFRAN 4 MG IV ×2 (07:07→20:48)
[2024-08-29] MEDS: HALDOL 3 MG IM (07:07)
[2024-08-29] MEDS: NSS 1000 IV ×2 (07:08→08:07)
[2024-08-29 07:19] LABS: Hematocrit 51.3 % (39.0-52.0); Hemoglobin 17.9 g/dL (13.0-18.0); Mean Corp Hgb Conc. 34.9 g/dL (33.0-37.0); Mean Corpuscular Hgb 28.8 pg (27.0-31.0); Mean Corpuscular Volume 82.5 fL (80.0-94.0); Mean Platelet Volume 10.9 fL (7.4-10.4); Platelet Count 425 10^3/uL (130-400); Red Blood Cell Count 6.22 10^6/uL (4.70-6.10); Red Cell Dist. Width 13.9 % (11.5-14.5); White Blood Cell Count 31.2 10^3/uL (4.8-10.8)
[2024-08-29 07:25] LABS: ALT (SGPT) 106 U/L (0-50); AST (SGOT) 38 U/L (17-59); Albumin > 6.0 g/dl (3.5-5.0); Alkaline Phosphatase 143 U/L (38-126); Blood Urea Nitrogen 26 mg/dl (9-20); Calcium 12.2 mg/dl (8.4-10.2); Carbon Dioxide 11 mmol/L (22-30); Chloride 93 mmol/L (98-107); Estimated Creatinine Clearance 27 ml/min; Glucose 184 mg/dl (70-99); Lipase 101 U/L (23-300); Potassium 3.7 mmol/L (3.5-5.1); Sodium 134 mmol/L (135-145); Total Bilirubin 0.8 mg/dl (0.2-1.3); Total Protein 10.2 g/dl (6.3-8.2); eGFR 21.74
[2024-08-29 07:38] LABS: % Basophils 0.3 % (0-2); % Immature Granulocytes 2.8 % (0-0.5); % Lymphocytes 6.8 % (20.5-51.1); % Monocytes 5.1 % (1.7-9.3); Absolute Basophils 0.1 10^3/uL (0-0.2); Absolute Immature Granulocytes 0.9 10^3/uL (0-0.05); Absolute Lymphocytes 2.1 10^3/uL (1.2-3.4); Absolute Monocytes 1.6 10^3/uL (0.1-0.6); Absolute Neutrophils 26.5 10^3/uL (1.4-6.5); Nucleated Red Blood Cells % 0 % (-)
--- NOTE | 2024-08-29 08:06 | HPS.HSE ---
Addendum entered and electronically signed by Alejandro Dias MD 08/29/24 09:22:
Patient also refused RUQ abdominal ultrasound.
Original Note:
Family Physician
-
Family Physician: Eugene Connolly
Chief Complaint
-
Nausea/Vomiting/Decreased PO Intake
History of Present Illness
29-year-old male with past medical history of cannabis use and associated cannabis hyperemesis syndrome, anxiety and constipation, presented to the emergency room for evaluation of nausea, vomiting and decreased oral intake starting around 11 am on
08/28/24, patient stated he also had some lower abdominal cramps which have resolved, he reports almost no urine output since his gastrointestinal symptoms started, continues to smoke marijuana, he denied any alcohol use, fever, and denied any
diarrhea.
Medical History
Past Medical History
Past Medical History: Reports Other (As per HPI above)
Past Surgical History: Reports None
Social History
Tobacco: Non-smoker
Alcohol: None
Drug: Marijuana
Family History
Family History: Diabetes
Allergies / Home Medications
Allergies reflects when Allergies were last updated in [employer].
Home Medications with original date entered in [employer]
Allergy/Medication List:
Allergies
Allergy/AdvReac Type Severity Reaction Status Date / Time
No Known Allergies Allergy Verified 08/29/24 05:56
Home Medications
Amlodipine 1 tab PO DAILY 08/29/24
escitalopram oxalate 10 mg tablet (Lexapro) 10 mg PO DAILY 08/29/24
magnesium oxide 400 mg PO DAILY 08/29/24
naproxen sodium 220 mg tablet (Aleve) 220 mg PO BIDPRN PRN mild pain 08/29/24
omeprazole 20 mg tablet,delayed release 20 mg PO DAILY 08/29/24
Review of Systems
-
A 12 point ROS was completed and negative except as noted: Yes
Physical Exam
Vital Signs
Vital Signs
Temp Pulse Resp BP Pulse Ox
99.1 F 144 26 152/114 97
08/29/24 05:55 08/29/24 05:55 08/29/24 05:55 08/29/24 05:55 08/29/24 05:55
Physical Exam
General: No Apparent Distress, Comfortable and Conversant
HEENT: NormoCephalic
Respiratory: Clear
Cardiac: S1/S2 and Regular Rhythm
GI: Soft, Non Tender and Normal Bowel Sounds
Genito-urinary: No costovertebral tender
Musculoskeletal: No Cyanosis and No Edema
Skin: Warm and Dry
Neuro: Awake, Alert and AO x 3
Psych: Calm and Intact Judgment/Insight
Laboratory Results
-
08/29/24 07:01
08/29/24 07:01
Laboratory Results
Total Bilirubin 0.8 mg/dl (0.2-1.3) 08/29/24 07:01
AST 38 U/L (17-59) 08/29/24 07:01
ALT 106 U/L (0-50) H 08/29/24 07:01
Alkaline Phosphatase 143 U/L (38-126) H 08/29/24 07:01
Lipase 101 U/L (23-300) 08/29/24 07:01
Impression/Plan
-
Assessment/Plan
Abdominal Pain/Nausea/Vomiting/Poor PO Intake Secondary to Cannabinoid hyperemesis syndrome (CHS)
Leukocytosis, Suspected Leukemoid Reaction -- no signs or symptoms of infection at this time
-Abdominal pain was only temporary, suspected secondary to Cannabinoid Hyperemesis Syndrome
-Continue IV fluids, antiemetics -- patient received Haldol in the ER and said that this is what works for him
-Avoid narcotic pain medications when possible
-Patient refused abdominal imaging at this time
Acute Kidney Injury, Suspected Pre-Renal Secondary to Poor PO Intake as above
-Continue 1/2 NS with bicarb
-Recheck/monitor BMP
-Nephrology already consulted by ER provider prior to admission, appreciate their evaluation and recommendations
-Check urinalysis
Anion Gap Metabolic Acidosis (with metabolic alkalosis at the same time), Suspected Secondary to Severe DANAE vs. Poor PO Intake
-Continue IV fluids with bicarb
Hyponatremia, Suspected Hypovolemic
-Continue IV fluids as above
Elevated ALT and ALP
-Patient denied any RUQ pain
-Check RUQ ultrasound
DVT Prophylaxis: Heparin Drip
Code Status: Full Code
--- NOTE | 2024-08-29 08:16 | W.CON.NEPH ---
Consultation
-
Date/Time Consultation Requested: 08/29/2024 7:30 AM
Date/Time Consultation Performed: 08/29/2024 7:35 AM
Requesting Provider: Dr. Deluna
Performing Provider: Dr. Llamas
Reason for Consultation: Acute renal failure /gap metabolic acidosis
Medical History
-
Chief Complaint: Acute kidney injury\\metabolic acidosis
History of Present Illness:
The patient is a 29-year-old male with a past medical history of cannabinoid abuse with known hyperemesis syndrome. He continues to smoke marijuana daily and excessive amounts. He continues to have repeat admissions with acute renal failure in the
setting of vomiting. He has a known history of anxiety but is not maintained on medical therapy. He presented last evening with ongoing nausea and vomiting. He denied any fevers or body ache. There were no known sick contacts at home. He does
note that his urine output has been dropping since the onset of his vomiting. On presentation to the hospital he had a gap metabolic acidosis of 11 with accompanied renal failure with a creatinine elevation to 3.7.
Past Medical History
Hyperemesis syndrome from cannabinoid abuse
History of acute kidney injury
Social History
Tobacco: Non-Smoker
Alcohol: None
Drug: Marijuana
Family History
No CKD
Allergies / Home Medications
Allergy/AdvReac Type Severity Reaction Status Date / Time
No Known Allergies Allergy Verified 08/29/24 05:56
Review of Systems
-
History Source: Patient
All other systems: Negative unless noted
Abdomen/GI: Abdominal Pain, Nausea and Vomiting
: Other (Decreased urine output)
Physical Exam
Vital Signs
Vital Signs
Temp Pulse Resp BP Pulse Ox
99.1 F 126 16 148/84 98
08/29/24 05:55 08/29/24 08:05 08/29/24 08:05 08/29/24 08:05 08/29/24 08:05
Lab Results
08/29/24 07:01
08/29/24 07:01
WBC 31.2 10^3/uL (4.8-10.8) H 08/29/24 07:01
RBC 6.22 10^6/uL (4.70-6.10) H 08/29/24 07:01
Hgb 17.9 g/dL (13.0-18.0) 08/29/24 07:01
Hct 51.3 % (39.0-52.0) 08/29/24 07:01
Plt Count 425 10^3/uL (130-400) H 08/29/24 07:01
Sodium 134 mmol/L (135-145) L 08/29/24 07:01
Potassium 3.7 mmol/L (3.5-5.1) 08/29/24 07:01
Chloride 93 mmol/L (98-107) L 08/29/24 07:01
Carbon Dioxide 11 mmol/L (22-30) L* 08/29/24 07:01
BUN 26 mg/dl (9-20) H 08/29/24 07:01
Creatinine 3.7 mg/dL (0.7-1.3) H 08/29/24 07:01
eGFR 21.74 08/29/24 07:01
Glucose 184 mg/dl (70-99) H 08/29/24 07:01
Calcium 12.2 mg/dl (8.4-10.2) H 08/29/24 07:01
Albumin > 6.0 g/dl (3.5-5.0) H 08/29/24 07:01
Physical Exam
General: AOx3, Nontoxic , NAD
HEENT: PERRL, EOMI, Anicteric, Conjunctivae Clear, Ear/Nose Intact, Hearing Normal, Oropharynx Clear/Moist, Dentition Intact, Facial Symmetry, Neck Supple, Neck: Trachea Midline, No JVD and No Thyromegaly, no Bruits
Respiratory: Clear to auscultation bilaterally with normal lung excursion
Cardiac: S1/S2 and Regular Rate/Rhythm
Breast: Deferred by me
Abdomen: Soft, Nontender, Nondistended, Normal Bowel Sounds and No Hepatosplenomegaly
Rectal: Deferred by Provider
Genito-urinary: No Costovertebral Tenderness
Extremities: No Clubbing, No Cyanosis and No Edema
Skin: No Rash or open lesions
Neuro: Nonfocal/Grossly Intact, CN II-XII (Intact) and Strength (Musculoskeletal exam 5 out of 5 both upper and lower extremities)
Hematologic/Lymphatic: No Cervical Lymphadenopathy, No Submandibular Lymphadenopathy and No Supraclavicular Lymphadenopathy
Psych: Mood/afflect pleasant, Insight/judgement good and Appropriate
Vascular: plus 2 pedal and radial pulses
Data Reviewed
-
Labs: Labs Reviewed by me (BMP CBC)
Old Records: Requested (Creatinine reviewed from 05/24/2024 2.3 in electronic medical)
Assessment/Plan
-
Impression:
DANAE
Gap metabolic acidosis with accompanying metabolic alkalosis in setting of volume depletion
Hyperemesis syndrome from chronic cannabinoid abuse
Leukocytosis
Plan:
DANAE:
-Likely prerenally mediated (associated hypercalcemia and elevated hgb) volume depletion: as this has been the case historically with his hyperemesis syndrome with accompanying cannabinoid abuse
-Would check urinalysis urine sodium urine creatinine
-Patient refusing imaging at this time
-Continue volume resuscitation but would not change IV fluids to half-normal saline with 75 mEq of sodium bicarbonate at 150 cc/h
-Follow-up BMP in a.m.
[2024-08-29 09:06] LABS: Urine Albumin 1+ (Neg - Trace); Urine Bilirubin Negative (Negative); Urine Character Slightly Cloudy (Clear); Urine Color Amber; Urine Glucose Negative (Negative); Urine Ketone 1+ (Negative); Urine Leukocyte Negative (Negative); Urine Nitrite Negative (Negative); Urine Occult Blood 2+ (Negative); Urine Urobilinogen Negative (Neg - 1+)
[2024-08-29] MEDS: SODIUM BICARBONATE 1075 MEQ IV ×2 (09:08→18:01)
[2024-08-29 09:54] LABS: Urine Mucus Moderate
[2024-08-29 09:55] LABS: Urine Squamous Cell 0-2 /LPF (Few)
[2024-08-29 09:56] LABS: Urine Bacteria Few (Negative)
--- NOTE | 2024-08-29 10:03 | EDRN ---
Patient taken to room 338-2 on monitor with Bicarb drip infusing by mechanical technologist. Patient tolerating ice chips.
[2024-08-29 11:21] LABS: Urine Sodium 32 mmol/L (30-90)
--- NOTE | 2024-08-29 11:28 | PTCARENOTE ---
pt admitted to telemetry 338-2. Ambulated to bed from ED stretcher, connected to bicarb drip. Pt tonya nausea. VSS, pt AAOx3, able to make needs known. Call be within reach.
[2024-08-29] MEDS: HEPARIN 5000 UNITS SC (19:48)
[2024-08-30] MEDS: SODIUM BICARBONATE 1075 MEQ IV ×2 (02:03→09:50)
[2024-08-30] MEDS: ZOFRAN 4 MG IV (02:48)
[2024-08-30 03:00] VITALS: BP 157/82
--- NOTE | 2024-08-30 03:00 | PTCARENOTE ---
Patient c/o nausea despite PRN zofran given, see MAR for administration. Patient pacing at bedside, requesting to take shower then requesting Haldol since he received in the ED. Hot pack given for comfort. CIRCULAR HEAD SAW OPERATOR notified and order placed for 2mg IM
Haldol, see MAR for admin. Patient asking for snacks and water, education provided on symptom management to prevent nausea or emesis. Call mascorro within reach, VSS, care ongoing.
[2024-08-30] MEDS: HALDOL 2 MG IM (03:24)
--- NOTE | 2024-08-30 07:05 | W.PN.HOSP.TC ---
Today's Communication/Plan
-
Discharge today
Assessment / Plan
Assessment / Plan
Physical Exam
General: No Apparent Distress, Comfortable and Conversant
HEENT: NormoCephalic
Respiratory: Clear
Cardiac: S1/S2 and Regular Rhythm
GI: Soft, Non Tender and Normal Bowel Sounds
Musculoskeletal: No Cyanosis and No Edema
Skin: Warm and Dry
Neuro: Awake, Alert and AO x 3
Psych: Calm and Intact Judgment/Insight
Assessment/Plan
Abdominal Pain/Nausea/Vomiting/Poor PO Intake Secondary to Cannabinoid hyperemesis syndrome (CHS)
Leukocytosis, Suspected Leukemoid Reaction -- no signs or symptoms of infection at this time
-Abdominal pain was only temporary, suspected secondary to Cannabinoid Hyperemesis Syndrome
-Received IV fluids, antiemetics -- patient received Haldol in the ER and said that this is what works for him
-Avoid narcotic pain medications when possible
-Patient refused abdominal imaging at this time
Acute Kidney Injury, Suspected Pre-Renal Secondary to Poor PO Intake as above
Microscopic Hematuria
Albuminuria
-Status post 1/2 NS with bicarb
-Repeat BMP with significant improvement
-Nephrology already consulted by ER provider prior to admission, appreciate their evaluation and recommendations
Anion Gap Metabolic Acidosis (with metabolic alkalosis at the same time), Suspected Secondary to Severe DANAE vs. Poor PO Intake
-Continue IV fluids with bicarb
Hypokalemia
-IV potassium replacement ordered
-Recheck BMP outpatient
Hyponatremia, Suspected Hypovolemic
-Continue IV fluids as above
Elevated ALT and ALP
-Patient denied any RUQ pain
-Patient refused RUQ ultrasound
DVT Prophylaxis: Heparin Subq
Code Status: Full Code
More than 30 minutes spent in discharge including
Final examination of the patient
Summarizing hospital stay
Instructions for continuing care to all relevant caregivers
Preparation of discharge records, prescriptions, and referral forms
Total time spent (in minutes): 36
Anticipated Discharge: Today
Subjective/Interval History
-
Date of Service: August 30, 2024
Patient was seen and examined. He had nausea overnight requiring Zofran and Haldol. Later today he tolerated both lunch and dinner and stated his nausea had essentially resolved.
Objective Data
-
Labs:
Laboratory Results
08/30/24
06:00
WBC Pending
Hgb Pending
Hct Pending
Plt Count Pending
Sodium Pending
Potassium Pending
Chloride Pending
Carbon Dioxide Pending
BUN Pending
Creatinine Pending
Glucose Pending
Calcium Pending
Total Bilirubin Pending
AST Pending
ALT Pending
Alkaline Phosphatase Pending
Vital Signs:
Vital Signs
Temp Pulse Resp BP Pulse Ox
98 F 83 12 157/82 99
08/30/24 03:00 08/30/24 03:00 08/30/24 03:00 08/30/24 03:00 08/30/24 03:00
I&O
08/29/24 08/30/24 08/31/24
06:59 06:59 06:59
Intake Total 1200 / 1200
Output Total 3000 / 3000
Balance -1800 / -1800
[2024-08-30 07:39] VITALS: BP 131/66
[2024-08-30] MEDS: HEPARIN SC ×2 (07:48→07:49)
[2024-08-30 09:57] LABS: % Basophils 0.1 % (0-2); % Immature Granulocytes 0.6 % (0-0.5); % Lymphocytes 14.6 % (20.5-51.1); % Monocytes 8.8 % (1.7-9.3); % Neutrophils 75.9 % (42.2-75.2); Absolute Immature Granulocytes 0.1 10^3/uL (0-0.05); Absolute Lymphocytes 2.4 10^3/uL (1.2-3.4); Absolute Monocytes 1.4 10^3/uL (0.1-0.6); Absolute Neutrophils 12.4 10^3/uL (1.4-6.5); Hematocrit 39.7 % (39.0-52.0); Hemoglobin 14.2 g/dL (13.0-18.0); Mean Corp Hgb Conc. 35.8 g/dL (33.0-37.0); Mean Corpuscular Hgb 29.5 pg (27.0-31.0); Mean Corpuscular Volume 82.4 fL (80.0-94.0); Mean Platelet Volume 11.4 fL (7.4-10.4); Nucleated Red Blood Cells % 0 % (-); Platelet Count 304 10^3/uL (130-400); Red Blood Cell Count 4.82 10^6/uL (4.70-6.10); Red Cell Dist. Width 13.8 % (11.5-14.5); White Blood Cell Count 16.3 10^3/uL (4.8-10.8)
[2024-08-30] MEDS: PEPCID 20 MG IV (10:28)
[2024-08-30] MEDS: NSS (PRESERVATIVE FREE) 8 ML IV (10:30)
[2024-08-30 10:33] LABS: ALT (SGPT) 76 U/L (0-50); AST (SGOT) 59 U/L (17-59); Albumin 4.5 g/dl (3.5-5.0); Alkaline Phosphatase 85 U/L (38-126); Blood Urea Nitrogen 11 mg/dl (9-20); Calcium 9.6 mg/dl (8.4-10.2); Carbon Dioxide 26 mmol/L (22-30); Chloride 97 mmol/L (98-107); Estimated Creatinine Clearance 123 ml/min; Glucose 93 mg/dl (70-99); Magnesium 1.9 mg/dl (1.6-2.3); Potassium 3.3 mmol/L (3.5-5.1); Sodium 136 mmol/L (135-145); Total Bilirubin 0.9 mg/dl (0.2-1.3); Total Protein 6.7 g/dl (6.3-8.2); eGFR > 60.00
[2024-08-30 11:19] VITALS: BP 148/83
--- NOTE | 2024-08-30 11:22 | W.PN.NEPH.PH ---
Today's Communication / Plan
-
Electrolytes improved bicarbonate discontinued
Potassium repletion with normal saline
Otherwise would be okay if for discharge from a renal standpoint
Assessment/Plan
-
Impression:
DANAE
Gap metabolic acidosis with accompanying metabolic alkalosis in setting of volume depletion
Hyperemesis syndrome from chronic cannabinoid abuse
Leukocytosis
Plan:
DANAE:
-Likely prerenally mediated (associated hypercalcemia and elevated hgb) volume depletion: as this has been the case historically with his hyperemesis syndrome with accompanying cannabinoid abuse
-Would check urinalysis urine sodium urine creatinine
-Patient refusing imaging at this time
Electrolytes normalized including acidosis bicarb 11>26 on bicarbonate fluid at 75 mill equivalent
Agree with discontinuing bicarbonate he is on normal saline with potassium repletion. Okay to continue that
-
-
Date of Service: August 30, 2024
CC / HPI / ROS
-
No chest pain or shortness of breath
Renal function improved urine output nonoliguric
Bicarbonate drip started yesterday acidosis improved
Labs
-
Labs:
WBC 16.3 10^3/uL (4.8-10.8) H 08/30/24 08:45
RBC 4.82 10^6/uL (4.70-6.10) 08/30/24 08:45
Hgb 14.2 g/dL (13.0-18.0) D 08/30/24 08:45
Hct 39.7 % (39.0-52.0) 08/30/24 08:45
Plt Count 304 10^3/uL (130-400) D 08/30/24 08:45
Sodium 136 mmol/L (135-145) 08/30/24 08:45
Potassium 3.3 mmol/L (3.5-5.1) L 08/30/24 08:45
Chloride 97 mmol/L (98-107) L 08/30/24 08:45
Carbon Dioxide 26 mmol/L (22-30) 08/30/24 08:45
BUN 11 mg/dl (9-20) 08/30/24 08:45
Creatinine 0.8 mg/dL (0.7-1.3) 08/30/24 08:45
eGFR > 60.00 08/30/24 08:45
Glucose 93 mg/dl (70-99) 08/30/24 08:45
Calcium 9.6 mg/dl (8.4-10.2) D 08/30/24 08:45
Albumin 4.5 g/dl (3.5-5.0) D 08/30/24 08:45
Physical Exam
-
Vital Signs:
Vital Signs
Temp Pulse Resp BP Pulse Ox
98.2 F 77 17 148/83 98
08/30/24 11:19 08/30/24 11:19 08/30/24 11:19 08/30/24 11:19 08/30/24 11:19
Cardiovascular:: Regular rate and rhythm
Respiratory:: Bilateral: CTA
Lung Excursion:: Normal
Abdomen:: Soft
Bowel Sounds:: Normal
Extremity Edema:: None: Bilateral:
[2024-08-30] MEDS: KCL 260 MEQ IV (11:42)
[2024-08-30 15:27] VITALS: BP 152/94
--- NOTE | 2024-08-30 17:33 | CM ---
Alert awake oriented patient who lives with his dad Thong who lives in a 1 story home with 4 step to enter.He is independent in driving and in all activities of daily living.He was offered VN he declined need.His mom Armando will drive him home.
Observation letter reviewed. Pt did not sign.
No VN hx / No SNF history
Pharmacy [facility]
PCP DR Connolly
PLAN Home Declined VN
--- NOTE | 2024-08-30 18:57 | W.DCSUMMARY ---
Discharge Summary
Discharge Data
Date of Admission: 08/29/24
Date of Discharge: 08/30/24
Total time spent discharging patient (in min): 36
-
Pending Results: No
Hospital Course
29-year-old male with past medical history of cannabis use and associated cannabis hyperemesis syndrome, anxiety and constipation, presented to the emergency room for evaluation of nausea, vomiting and decreased oral intake starting around 11 am on
08/28/24, patient stated he also had some lower abdominal cramps which have resolved, he reports almost no urine output since his gastrointestinal symptoms started, continues to smoke marijuana, he denied any alcohol use, fever, and denied any
diarrhea. Patient was found to have hypovolemic hyponatremia, metabolic acidosis suspected secondary to acute kidney injury and poor PO intake, hypercalcemia and acute kidney injury, after intravenous fluids with bicarb were started patient's lab
numbers improved. Emergency room provider consulted nephrology. Patient's was able to tolerate oral intake, his symptoms improved and he was discharged.
Discharge Plan
-
Patient Disposition: Home (Routine Discharge)
Discharge Diagnosis/Procedures: Abdominal Pain/Nausea/Vomiting/Poor PO Intake Secondary to Cannabinoid hyperemesis syndrome (CHS)
Leukocytosis, Suspected Leukemoid Reaction -- no signs or symptoms of infection at this time
Acute Kidney Injury, Suspected Pre-Renal Secondary to Poor PO Intake as above
Microscopic Hematuria
Albuminuria
Anion Gap Metabolic Acidosis (with metabolic alkalosis at the same time), Suspected Secondary to Severe DANAE vs. Poor PO Intake
Hypokalemia
Hyponatremia, Suspected Hypovolemic
Elevated ALT and ALP
Condition: Good
Diet: As tolerated
Blood Work: Check CBC, CMP and Magnesium with your primary care provider's office by 09/01/24
Activity Restrictions/Additional Instructions:
Avoid Opioid pain medications.
You need to abstain from Cannabis; Cannabis abstinence will prevent recurrence
Referrals:
Eugene Connolly MD [Family Provider] - in less than 1 week
Prescriptions:
Continued
omeprazole 20 mg Tablet,Delayed Release (Dr/Ec)
20 mg PO DAILYPRN PRN (Reason: reflux/GERD)
Discharge Orders:
Discharge Patient (As Directed); Ordered 08/30/24
Ordered By: Alejandro Dias
Discharge Date and Time
Discharge Date/Time: 08/30/24 19:45
Print Language: PERSIAN
== END 2024-08-30 19:45 | disposition home or self-care (01) ==
LOC: 3 WEST ACU 08:46
PROVIDERS: ADMITTING PHYSICIAN Hospitalist; CONSULT PHYSICIAN Specialist; EMERGENCY PHYSICIAN Emergency Medicine; FAMILY PHYSICIAN Family Medicine
DX: N17.9 Acute kidney failure, unspecified (principal); R11.2 Nausea with vomiting, unspecified; F12.10 Cannabis abuse, uncomplicated; E87.1 Hypo-osmolality and hyponatremia; E87.4 Mixed disorder of acid-base balance; E83.52 Hypercalcemia; E86.1 Hypovolemia; R31.29 Other microscopic hematuria; E87.6 Hypokalemia; R80.9 Proteinuria, unspecified; E86.0 Dehydration; Z79.899 Other long term (current) drug therapy
CPT/HCPCS: 51798; 80053; 81003; 81015; 82570; 83690; 83735; 84300; 85025; 93005; 96361; 96372; 96374; 96375; 99285; G0378; J7030

== ENCOUNTER 2025-01-12 15:23 | Emergency (ER) | payer OTHER, SELFPAY ==
[2025-01-12 15:43] VITALS: BP 171/114
[2025-01-12 16:28] LABS: AST (SGOT) 38 U/L (17-59); Albumin 5.9 g/dl (3.5-5.0); Alkaline Phosphatase 114 U/L (38-126); Blood Urea Nitrogen 28 mg/dl (9-20); Calcium 11.1 mg/dl (8.4-10.2); Carbon Dioxide 19 mmol/L (22-30); Chloride 99 mmol/L (98-107); Glucose 167 mg/dl (70-99); Potassium 3.7 mmol/L (3.5-5.1); Sodium 140 mmol/L (135-145); Total Bilirubin 0.9 mg/dl (0.2-1.3); Total Protein 9.7 g/dl (6.3-8.2); eGFR 22.46
[2025-01-12 16:29] LABS: Lipase 64 U/L (23-300)
[2025-01-12 16:35] LABS: Hematocrit 45.1 % (39.0-52.0); Hemoglobin 16.2 g/dL (13.0-18.0); Mean Corp Hgb Conc. 35.9 g/dL (33.0-37.0); Mean Corpuscular Hgb 29.3 pg (27.0-31.0); Mean Corpuscular Volume 81.6 fL (80.0-94.0); Mean Platelet Volume 10.6 fL (7.4-10.4); Platelet Count 340 10^3/uL (130-400); Red Blood Cell Count 5.53 10^6/uL (4.70-6.10); Red Cell Dist. Width 13.5 % (11.5-14.5); White Blood Cell Count 23.5 10^3/uL (4.8-10.8)
[2025-01-12 16:38] LABS: ALT (SGPT) 94 U/L (0-50)
[2025-01-12 17:39] LABS: % Basophils 0.2 % (0-2); % Immature Granulocytes 0.6 % (0-0.5); % Lymphocytes 7.9 % (20.5-51.1); % Monocytes 5.5 % (1.7-9.3); % Neutrophils 85.8 % (42.2-75.2); Absolute Immature Granulocytes 0.2 10^3/uL (0-0.05); Absolute Lymphocytes 1.9 10^3/uL (1.2-3.4); Absolute Monocytes 1.3 10^3/uL (0.1-0.6); Absolute Neutrophils 20.2 10^3/uL (1.4-6.5); Nucleated Red Blood Cells % 0 % (-)
--- NOTE | 2025-01-12 20:11 | ED.GENMED ---
History of Present Illness
General
Chief Complaint: Abdominal Symptoms
Source: patient
Exam Limitations: none
Time Seen by Provider: 01/12/25 19:43
History of Present Illness
History of Present Illness:
29-year-old male with history of cannabis hyperemesis syndrome presents with the onset of vomiting last evening and states that he vomited at least 50 times today. He notes crampy abdominal pain but denies any fever or diarrhea. He has been here
for the same thing in the past. He states water is now staying down however he is esophagus is burning from vomiting. He states Haldol usually helps. He was admitted several months ago for this with acute kidney injury, metabolic acidosis and
leukocytosis.
Past History
Past History
ED Past Medical History: Psychiatric (Anxiety) and Other (Constipation, )
ED Past Surgical History: None
Social History
Tobacco: Non-smoker
Alcohol: None
Drug: Marijuana (daily, cutting back)
Personal: Single
Living: with family
Employment: Not employed ([employer])
Family History
Family History: Other (Noncontributory)
Phy Exam
Physical Exam
Physical Exam:
General: Well-appearing male no acute respiratory distress
HEENT: Normocephalic mucosa dry neck is supple
Heart: Regular rate and rhythm
Lungs: Clear no wheeze
Abdomen is soft nontender nondistended no guarding or rebound
Extremities: No cyanosis
Course
Orders/Labs/Results
Orders:
Orders
01/12/25 15:59
Complete Blood Count/With Diff Urgent
Comprehensive Metabolic Panel Urgent
Lipase Urgent
01/12/25 19:54
0.9% Sodium Chloride 1000 ml [Nss] 1,000 ml IV BOLUS
Haloperidol Lactate [Haldol] 2 mg IV NOW STA
Mag Hydrox/Al Hydrox/Simeth [Maalox] 30 ml Phenobarb/Hyoscy/Atropine/Scop [] 10 ml PO NOW
01/12/25 20:08
Mag Hydrox/Al Hydrox/Simeth [Maalox] 30 ml .ROUTE .STK-MED ONE
Phenobarb/Hyoscy/Atropine/Scop [] 10 ml .ROUTE .STK-MED ONE
Abnormal Lab Results
01/12/25
15:59
WBC 23.5 H 10^3/uL
(4.8-10.8)
MPV 10.6 H fL
(7.4-10.4)
Abs Immat Gran (auto) 0.2 H 10^3/uL
(0-0.05)
Absolute Neuts (auto) 20.2 H 10^3/uL
(1.4-6.5)
Absolute Monos (auto) 1.3 H 10^3/uL
(0.1-0.6)
Immature Gran % 0.6 H %
(0-0.5)
Neutrophils % 85.8 H %
(42.2-75.2)
Lymphocytes % 7.9 L %
(20.5-51.1)
Carbon Dioxide 19 L mmol/L
(22-30)
BUN 28 H mg/dl
(9-20)
Creatinine 3.6 H mg/dL
(0.7-1.3)
Glucose 167 H mg/dl
(70-99)
Calcium 11.1 H mg/dl
(8.4-10.2)
ALT 94 H U/L
(0-50)
Total Protein 9.7 H g/dl
(6.3-8.2)
Albumin 5.9 H g/dl
(3.5-5.0)
01/12/25 15:59
01/12/25 15:59
Vital Signs
Initial and Last Documented VS:
Initial Vital Signs
Pulse Resp BP Pulse Ox
104 18 171/114 100
01/12/25 15:43 01/12/25 15:43 01/12/25 15:43 01/12/25 15:43
Last Documented Vital Signs
Pulse Resp BP Pulse Ox
98 18 142/87 99
01/12/25 20:16 01/12/25 20:16 01/12/25 22:40 01/12/25 22:40
MDM/Problems Addressed
Differential Diagnosis Includes:
Vomiting with abdominal pain. This is similar to prior presentation of cannabis hyperemesis. Review of chart shows leukocytosis in the past. His white count today is 23,000. Review of the chart also shows kidney injury in the past. Creatinine
today is 3.6. Bicarb is 19. Patient typically improves with Haldol and fluids per the patient. Did explain that he has leukocytosis and kidney injury today. It is likely prerenal. Deferred on imaging for now
*Critical Care Note
Total Time (30-74mins, 75-104mins- exclusive of procedures): Not Applicable
Update Note
Update Note:
Patient reevaluated feeling better after fluids and Haldol. Patient likely has a recurrent episode of cannabis hyperemesis syndrome. No vomiting here. I discussed with the patient that he has sustained kidney injury. I discussed that we could
keep him in the hospital and should keep him in the hospital for this but he wishes to go home and hydrate at home. Return precautions were given
ED Attending Note
-
Portions of this chart may have been created with voice recognition software.� Occasional wrong word or��sound alike� substitutions may have occurred due to the inherent limitations of voice recognition software.
Discharge Plan
Departure
Patient Disposition: Home (Routine Discharge)
Date of Disposition: 01/12/25
Time of Disposition: 22:43
Patient with high blood pressure during this ER visit?: No
Discharge Problem:
Acute dehydration, Acute renal failure (ARF)
Instructions: Nausea and Vomiting, Adult (DC)
Prescriptions:
No Action
omeprazole 20 mg Tablet,Delayed Release (Dr/Ec)
20 mg PO DAILYPRN PRN (Reason: reflux/GERD)
Referrals:
Eugene Connolly MD [Family Provider] -
Activity Restrictions/Additional Instructions:
Stay hydrated. Please return here for worsening symptoms otherwise follow-up with your doctors
Interventions
Interventions:
*Risk Screen - Suicide Last Done: 01/12/25 15:43
*General Assessment Last Done: 01/12/25 15:43
*Neglect/Abuse Screening Last Done: 01/12/25 15:43
*ED- Fall Risk Assessment Last Done: 01/12/25 20:19
*ED COVID-19 Vaccine History Last Done: 01/12/25 20:19
ER-Tnlclp-Ydekfsxbem Assessment Last Done: 01/12/25 20:19
Discharge Date and Time
Print Language: SETSWANA
[2025-01-12] MEDS: NSS 1000 IV (20:13)
[2025-01-12] MEDS: HALDOL 2 MG IV (20:13)
[2025-01-12] MEDS: MAALOX 40 PO (20:13)
[2025-01-12 20:16] VITALS: BP 147/100
[2025-01-12 21:00] VITALS: BP 126/104
[2025-01-12 22:40] VITALS: BP 142/87
== END 2025-01-12 22:51 | disposition home or self-care (01) ==
LOC: EMR 15:23
PROVIDERS: Emergency Medicine; EMERGENCY PHYSICIAN Student in an Organized Health Care Education/Training Program; FAMILY PHYSICIAN Family Medicine
DX: E86.0 Dehydration (principal); N17.9 Acute kidney failure, unspecified; F12.90 Cannabis use, unspecified, uncomplicated
CPT/HCPCS: 96374; 96361; 99284; 80053; 83690; 85025

== ENCOUNTER 2025-01-14 05:04 | Inpatient (IN) | payer OTHER, SELFPAY ==
[2025-01-13] MEDS: ZOFRAN ODT (ORALLY DISINTEGRATING) 4 MG PO (21:58)
[2025-01-14] VITALS (7 sets, daily range): BP systolic 112–157; BP diastolic 73–93; BMI 28.1; BMI 28.0
--- NOTE | 2025-01-14 02:20 | EDRN ---
Pt was treated in this ED on 01/12 for hyperemesis related to marijuana usage. Pt denies using marijuana since his last ED visit. Pt returns with complaint of burning in his esophagus, nausea, vomiting and abdominal cramping. Pt tried drinking
Gatorade in ED waiting room but has not been able to keep it down. Pt denies fever/chills/cough, cp, sob, urinary symptoms, diarrhea/constipation.
--- NOTE | 2025-01-14 02:40 | ED.GENMED ---
History of Present Illness
General
Chief Complaint: Abdominal Symptoms
Source: patient
Time Seen by Provider: 01/14/25 02:32
History of Present Illness
History of Present Illness:
This patient is a 29-year-old male with a history of CHF who presents emergency department with several days of intractable vomiting. He was most recently in the emergency department 1-1/2 days ago, felt better, went home. He states he has been
unable to tolerate p.o. since that time. He denies fever, chills, chest pain, shortness of breath, abdominal pain, back pain, dizziness, bleeding, diarrhea, or other complaints.
Past History
Past History
ED Past Medical History: Psychiatric (Anxiety) and Other (Constipation, CHS)
ED Past Surgical History: None
Social History
Tobacco: Non-smoker
Alcohol: None
Drug: Marijuana (daily, cutting back)
Personal: Single
Living: with family
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
Family History
Family History: Other (Noncontributory)
Phy Exam
Physical Exam
Physical Exam:
GENERAL: Alert , in no apparent distress
EYE: pupils equal and reactive
NECK: Supple, no significant adenopathy.
ENT: o/p clr, mm dry.
CARDIAC: Regular rate and rhythm .
LUNGS: Clear breath sounds bilaterally, no acute respiratory distress, no wheezes/rales/rhonchi
ABDOMEN: Soft, without focal tenderness, no r/g, no cvat
NEUROLOGICAL: Alert and oriented, no focal neuro deficits
SKIN: Warm and dry, skin intact.
MUSCULOSKELETAL: No edema, well perfused.
PSYCH: Normal and appropriate interaction.
Course
Orders/Labs/Results
Orders:
Orders
01/13/25 21:56
Ondansetron Orally Disint [Zofran Odt (Orally Disintegrating)] 4 mg .ROUTE .[facility]
01/13/25 21:58
Ondansetron Orally Disint [Zofran Odt (Orally Disintegrating)] 4 mg PO NOW STA
01/14/25 02:39
Cardiac Monitoring- Treatment ONCE
0.9% Sodium Chloride 1000 ml [Nss] 1,000 ml IV BOLUS
Haloperidol Lactate [Haldol] 2 mg IV NOW STA
01/14/25 03:01
Complete Blood Count/No Diff Urgent
Comprehensive Metabolic Panel Urgent
Direct Bilirubin Urgent
LDH Urgent
Lipase Urgent
Reticulocyte Count Urgent
Comment: ADD ON
TSH Urgent
Comment: ADD ON
01/14/25 04:02
0.9% Sodium Chloride 1000 ml [Nss] 1,000 ml IV BOLUS
01/14/25 04:15
Admit/Transfer Patient As Directed
Co-Sign Provider:
Level of Care: Inpatient admission
Assign to:: Medical/Surgical
Physician / Group: Amauri
Diagnosis: DANAE, Hyperemesis
Reason for Hospitalization: DANAE, Hyperemesis
Expected length of stay greater than two midnights?: Yes
ELOS- Estimated Length of Stay in days: 2
I certify the patient meets the requirements for IP care: Yes
01/14/25 04:16
Code Status As Directed
Resuscitation Status: Full Code
Potassium Chloride [KCl] 40 meq 0.9% Sodium Chloride 250 ml [Nss] 250 ml IV NOW
PRN Pain Medication Management As Directed
May give lesser potent ordered pain med per pt: Yes
preference::
Protocol:: Medication orders for pain may be administered in a
manner that supports deferring to patient preference
when the pt is:
- Requesting an ordered lesser potent pain medication.
Least to most potent pain medications are defined
as: acetaminophen < NSAID < tramadol < opioids
(morphine, oxycodone, hydromorphone).
- Requesting a lesser dose of the same medication IF
ORDERED.
- Requesting a less intrusive route of administration
if both routes are prescribed by the provider (PO <
IV).
01/14/25 05:00
Flush (0.9% Sodium Chloride) [Flush (Nss)] See Dose Instructions IV PER PROTOCOL
01/14/25 05:04
Urine Drug Abuse Screen Urgent
Date Specimen was Collected: 01/14/25
Time Specimen was Collected: 05:01
01/14/25 Breakfast
Clear Liquid
At Your Request: Full Participation
Does patient need a safe tray?: No
01/14/25 06:03
Acetaminophen [Tylenol] 650 mg PO Q4HPRN PRN
Haloperidol Lactate [Haldol] 1 mg IV Q4HPRN PRN
KCl 20 Meq/0.9%Sodchl 1000 ml [NSS with KCL 20 MEQ] 20 meq in 1,000 ml IV 150 mls/hr
Prochlorperazine [Compazine] 5 mg IV Q6HPRN PRN
01/14/25 06:03
Activity As Directed
Activity Level: Ambulate
I/O [Intake/ Output] As Directed
Frequency: Per unit guidelines
Pneumatic Compression Sleeves As Directed
Type: Knee high
Vital Signs As Directed
Frequency: Per unit guidelines
DX Deep Vein Thrombosis Video Routine
01/14/25 08:00
Pantoprazole [Protonix IV] 40 mg IV DAILY
01/15/25 06:00
Basic Metabolic Panel IN AM
Complete Blood Count/No Diff IN AM
Magnesium IN AM
Phosphorus IN AM
Abnormal Lab Results
01/14/25 01/14/25
03:01 05:04
WBC 27.5 H 10^3/uL
(4.8-10.8)
MCV 79.0 L fL
(80.0-94.0)
MCHC 37.2 H g/dL
(33.0-37.0)
MPV 12.1 H fL
(7.4-10.4)
Sodium 131 L D mmol/L
(135-145)
Potassium 3.0 L mmol/L
(3.5-5.1)
Chloride 88 L mmol/L
(98-107)
Carbon Dioxide 19 L mmol/L
(22-30)
BUN 48 H mg/dl
(9-20)
Creatinine 3.5 H mg/dL
(0.7-1.3)
Glucose 104 H mg/dl
(70-99)
Calcium 10.5 H mg/dl
(8.4-10.2)
Total Bilirubin 1.9 H D mg/dl
(0.2-1.3)
AST 84 H U/L
(17-59)
ALT 157 H U/L
(0-50)
Lactate Dehydrogenase 303 H U/L
(120-246)
Total Protein 8.7 H g/dl
(6.3-8.2)
Albumin 5.7 H g/dl
(3.5-5.0)
Ur Barbiturates Screen Positive H
(Negative)
U Marijuana (THC) Screen Positive H
(Negative)
01/14/25 03:01
01/14/25 03:01
Vital Signs
Initial and Last Documented VS:
Initial Vital Signs
Temp Pulse Resp Pulse Ox
98.5 F 133 26 97
01/13/25 21:50 01/13/25 21:50 01/13/25 21:50 01/13/25 21:50
Last Documented Vital Signs
Temp Pulse Resp BP Pulse Ox
98.8 F 86 16 121/73 98
01/14/25 15:20 01/14/25 15:20 01/14/25 15:20 01/14/25 15:20 01/14/25 15:20
*Critical Care Note
Total Time (30-74mins, 75-104mins- exclusive of procedures): Not Applicable
Update Note
Update Note:
Patient presents to the Emergency Department with ____intractable vomiting
Number and Complexity of Problems Addressed at the Encounter
� Chronic conditions affecting care:
� Acute Exacerbation and/or Progression of Chronic Illness:
� Differential Diagnosis includes: But not limited to CHF, pancreatitis, gastroenteritis, dehydration, etc. etc.
Amount and/or Complexity of Data to be Reviewed and Analyzed
� I performed an independent evaluation of and my interpretation is:
EKG:
CT:
Xrays:
Laboratory Studies: Leukocytosis similar to prior, progressive hyponatremia, hypokalemia, hypochloremia, prerenal azotemia with acute renal insufficiency, nonspecific bilirubin elevation, lipase within normal limits
Other:
� Review of other/old records reveals: Several ER presentations and even admissions for similar symptoms noted. Patient states today symptoms feel just like prior CHS related events
� Clinical information was obtained by an independent historian:
� Prescriptions/Medications Considered but not given: Of note, I offered patient be CARES consult which he declines at this time
� Further testing considered but not performed:
Risk of Complications and/or Morbidity or Mortality of Patient Management
� Social determinants of health affecting care:
� Discussion with other providers (PCP, Hospitalists, Consultants, etc):
� Escalation of care including admission/observation vs risk of discharge considered: 4:03 AM patient resting comfortably, not actively vomiting but overall does not feel well. He will obviously need to be admitted with
continued hydration, monitoring, potassium replacement, etc. Case discussed with Dr. Gutierrez for admission via Raymond text
ED Attending Note
-
Portions of this chart may have been created with voice recognition software.� Occasional wrong word or��sound alike� substitutions may have occurred due to the inherent limitations of voice recognition software.
Discharge Plan
Departure
Patient Disposition: Admit
Date of Disposition: 01/14/25
Time of Disposition: 04:04
Admit to: Telemetry
Admit to doctor: amauri
Presentation/result/management discussed w/ accepting MD/DO: Hospitalist
Condition: Fair
Discharge Problem:
Cannabinoid hyperemesis syndrome, Acute dehydration, Acute renal failure (ARF)
Interventions
Interventions:
*Risk Screen - Suicide Last Done: 01/13/25 21:50
*General Assessment Last Done: 01/13/25 21:50
*Neglect/Abuse Screening Last Done: 01/13/25 21:50
*ED- Fall Risk Assessment Last Done: 01/13/25 21:50
*ED COVID-19 Vaccine History Last Done: 01/13/25 21:50
*Nursing Disposition Last Done: 01/14/25 05:52
[facility]Dxt[facility]padf[facility] Assessment Last Done: 01/14/25 02:17
Discharge Date and Time
Discharge Date/Time: 01/14/25 05:52
[2025-01-14] MEDS: NSS 1000 IV ×2 (03:01→04:10)
[2025-01-14] MEDS: HALDOL 2 MG IV (03:06)
[2025-01-14 03:43] LABS: Albumin 5.7 g/dl (3.5-5.0); Alkaline Phosphatase 88 U/L (38-126); Blood Urea Nitrogen 48 mg/dl (9-20); Calcium 10.5 mg/dl (8.4-10.2); Carbon Dioxide 19 mmol/L (22-30); Chloride 88 mmol/L (98-107); Estimated Creatinine Clearance 28 ml/min; Glucose 104 mg/dl (70-99); Lipase 187 U/L (23-300); Sodium 131 mmol/L (135-145); Total Bilirubin 1.9 mg/dl (0.2-1.3); Total Protein 8.7 g/dl (6.3-8.2); eGFR 23.24
[2025-01-14 03:54] LABS: ALT (SGPT) 157 U/L (0-50); AST (SGOT) 84 U/L (17-59)
[2025-01-14 03:57] LABS: Hematocrit 43.3 % (39.0-52.0); Hemoglobin 16.1 g/dL (13.0-18.0); Mean Corp Hgb Conc. 37.2 g/dL (33.0-37.0); Mean Corpuscular Hgb 29.4 pg (27.0-31.0); Mean Platelet Volume 12.1 fL (7.4-10.4); Platelet Count 164 10^3/uL (130-400); Red Blood Cell Count 5.48 10^6/uL (4.70-6.10); Red Cell Dist. Width 13.2 % (11.5-14.5); White Blood Cell Count 27.5 10^3/uL (4.8-10.8)
--- NOTE | 2025-01-14 04:16 | EDRN ---
Called pharmacy for KCL 40meq IV
--- NOTE | 2025-01-14 04:23 | HPS.HSE ---
Family Physician
-
Family Physician: NOT KNOW UNKNOWN - PT DOES
Chief Complaint
-
N/V
History of Present Illness
Patient is a 29y M with PMH significant for cannabinoid hyperemesis who presents to ED complaining of N/V x 2 days. Patient states that his symptoms started 2 days ago and have not relented since that time. He has been unable to tolerate any PO
intake in that time. He denies any abdominal pain, fevers / chills, diarrhea, etc. He has been producing urine - though decreased from his usual amount. He has not had a BM in the past 2 days.
Patient states that he last smoked marijuana about 2 days ago prior to onset of symptoms. He typically smokes daily.
Medical History
Past Medical History
Past Medical History: Reports Other
Additional Past Medical History:
Cannabinoid Hyperemesis
Anxiety
Past Surgical History: Reports Other
Additional Past Surgical History:
Left Ankle Surgery
Social History
Tobacco: Non-smoker
Alcohol: None
Drug: Marijuana (Daily use. Last 2 days ago. No other illicit substance use.)
Family History
Family History: Not pertinent
Allergies / Home Medications
Allergies reflects when Allergies were last updated in [facility].
Home Medications with original date entered in [facility]
Allergy/Medication List:
Allergies
Allergy/AdvReac Type Severity Reaction Status Date / Time
No Known Allergies Allergy Verified 01/13/25 21:50
Home Medications
famotidine 20 mg tablet (Pepcid) 20 mg PO DAILY PRN heartburn 01/14/25
Review of Systems
-
History Source: Patient
A 12 point ROS was completed and negative except as noted: Yes
Constitutional: Reports Fatigue; Denies Fever or Chills
EENT: Denies Sore Throat
Respiratory: Denies Cough or Trouble Breathing
Cardiac: Denies Chest Pain or Palpitations
Abdomen/GI: Reports Nausea and Vomiting; Denies Abdominal Pain, Diarrhea, Constipated, Bloody Stools or Black Stools
: Denies Dysuria, Frequency or Flank Pain
Musculoskeletal: Denies Joint Pain or Edema
Neurological: Denies Dizzy or Headache
Psych: Reports Anxiety
Physical Exam
Vital Signs
Vital Signs
Temp Pulse Resp BP Pulse Ox
98.5 F 99 21 138/81 99
01/13/25 21:50 01/14/25 04:00 01/14/25 04:00 01/14/25 04:00 01/14/25 02:17
Physical Exam
General: Other (29y M in mild distress due to nausea.)
HEENT: Other (Dry MM. Neck supple. Cystic lesion lateral to R eye.)
Respiratory: Clear; No Wheezes, Rales or Rhonchi
Cardiac: S1/S2 and Regular Rhythm; No Murmur
GI: Soft, Non Tender, Non Distended and Normal Bowel Sounds
Musculoskeletal: No Clubbing, No Cyanosis and No Edema
Neuro: AO x 3
Laboratory Results
-
01/14/25 03:01
01/14/25 03:01
Laboratory Results
Total Bilirubin 1.9 mg/dl (0.2-1.3) H D 01/14/25 03:01
AST 84 U/L (17-59) H 01/14/25 03:01
ALT 157 U/L (0-50) H 01/14/25 03:01
Alkaline Phosphatase 88 U/L (38-126) 01/14/25 03:01
Lipase 187 U/L (23-300) 01/14/25 03:01
Impression/Plan
-
A/P: Patient is a 29y M with PMH significant for cannabinoid hyperemesis who presents to ED complaining of N/V x 2 days.
Cannabinoid Hyperemesis
DANAE secondary to the above
Anion Gap Metabolic Acidosis
Hyponatremia
Hypokalemia
Hypercalcemia
- Admit for further evaluation and treatment.
- Marked electrolyte abnormalities and DANAE due to volume losses - similar to prior presentations.
- Aggressive IVF / electrolyte replacement (NSS + KCl for now).
- Antiemetics / Haldol for hyperemesis.
- Follow for improvement in labs / lytes. Has had rapid correction in the past with IVFs.
- Encourage cessation of THC moving forward.
Generalized Anxiety
- Uncontrolled. Follow-up with PCP or formal Psych eval as an outpatient.
- Would likely benefit from pharmacologic alternative to THC.
DVT Prophylaxis: SCDs
Code Status: Full
[2025-01-14] MEDS: KCL 270 MEQ IV (04:48)
[2025-01-14 05:45] LABS: Amphetamines Negative (Negative); Barbiturates Positive (Negative); Marijuana Positive (Negative)
[2025-01-14 05:46] LABS: Benzodiazepines Negative (Negative); Buprenorphine Negative (Negative); Cocaine Negative (Negative); Methadone Negative (Negative); Methamphetamines Negative (Negative); Opiates Negative (Negative); Phencyclidine Negative (Negative); Tricyclic Antidepressants Negative (Negative)
[2025-01-14 07:46] LABS: Reticulocyte Count 1.5 % (0.4-2.8)
[2025-01-14 08:07] LABS: Direct Bilirubin 0.4 mg/dl (0.0-0.4); LDH 303 U/L (120-246)
[2025-01-14 08:22] LABS: Intact PTH 41.9 pg/ml (13.6-85.8)
[2025-01-14] MEDS: NSS with KCL 20 MEQ 1000 IV ×3 (08:26→21:50)
[2025-01-14] MEDS: COMPAZINE 5 MG IV (08:27)
[2025-01-14] MEDS: NSS (PRESERVATIVE FREE) 10 ML IV (08:27)
[2025-01-14] MEDS: PROTONIX IV 40 MG IV (08:28)
[2025-01-14 08:33] LABS: TSH 0.59 uIU/ml (0.47-4.68)
--- NOTE | 2025-01-14 08:45 | W.PN.HOSP.TC ---
Today's Communication/Plan
-
See PN
Assessment / Plan
Assessment / Plan
29yo M with PMHX of recurrent cannabis hyperemesis came with same symptoms of nausea, vomiting and inability to keep food or liquid down. Still uses cannabis for recreational purposes, denied medciating himself for anxiety. Hot shower brought some
relief at home, but since was not able to eat or drink - came to ED
A/P:
#Cannabis hyperemesis syndrome
#Concern for substance abuse
improving
Compazine
DIet as tolerated
COunceled on cessation
UDS positive for marijuana and barbiturates
#DANAE
#Hypokalemia
#Reactive leukocytosis
#Hypopnatremia
#Hypercalcemia
#Transaminitis
#Indirect bilirubinemia
Lipase WNL
No abdominal tenderness, previous CT abd without acute findings during same presentation. fatty liver disease noted
Advised outpatient GI for EGD and liver tests - patient verbalized understanding and agreement with plan
2/2 hyperemesis
IVF
follow LFT and electrolytes
Correct electrolytes as needed
check PTH
Check hepatitis panel
Advise low fat diet
DVT ppx hep
Full code
I bruna spent at least 57min reviewing chart, test results, communication with consulktants and providing direct patient care
Anticipated Discharge: 24 - 48 hours
Subjective/Interval History
-
Date of Service: January 14, 2025
Objective Data
-
Labs:
Laboratory Results
01/14/25 01/14/25 01/14/25
03:01 08:02 12:00
WBC 27.5 H Pending
Hgb 16.1 Pending
Hct 43.3 Pending
Plt Count 164 D Pending
Sodium 131 L D Pending
Potassium 3.0 L Pending
Chloride 88 L Pending
Carbon Dioxide 19 L Pending
BUN 48 H Pending
Creatinine 3.5 H Pending
Glucose 104 H Pending
Calcium 10.5 H Pending
Total Bilirubin 1.9 H D Pending
AST 84 H Pending
ALT 157 H Pending
Alkaline Phosphatase 88 Pending
Vital Signs:
Vital Signs
Temp Pulse Resp BP Pulse Ox
98.8 F 92 16 136/78 98
01/14/25 08:22 01/14/25 08:22 01/14/25 08:22 01/14/25 08:22 01/14/25 08:22
Review of Systems
-
History Source: Patient
All other systems: Reviewed and negative
Abdomen/GI: Reports Nausea; Denies Abdominal Pain or Diarrhea
Physical Exam
-
General: No Apparent Distress
HEENT: Normocephalic
Respiratory: Clear to Auscultation
Cardiac: Regular Rhythm
GI: Soft, Nontender and Nondistended
Neuro: Awake, Alert, Oriented and AO x 3
Psych: Calm
[2025-01-14 09:03] LABS: % Basophils 0.2 % (0-2); % Immature Granulocytes 0.7 % (0-0.5); % Lymphocytes 8.7 % (20.5-51.1); % Monocytes 14.8 % (1.7-9.3); % Neutrophils 75.6 % (42.2-75.2); Absolute Immature Granulocytes 0.2 10^3/uL (0-0.05); Absolute Lymphocytes 2.2 10^3/uL (1.2-3.4); Absolute Monocytes 3.7 10^3/uL (0.1-0.6); Absolute Neutrophils 19.1 10^3/uL (1.4-6.5); Hematocrit 36.9 % (39.0-52.0); Hemoglobin 13.4 g/dL (13.0-18.0); Mean Corp Hgb Conc. 36.3 g/dL (33.0-37.0); Mean Corpuscular Hgb 29.2 pg (27.0-31.0); Mean Corpuscular Volume 80.4 fL (80.0-94.0); Mean Platelet Volume 12.3 fL (7.4-10.4); Nucleated Red Blood Cells % 0 % (-); Platelet Count 243 10^3/uL (130-400); Red Blood Cell Count 4.59 10^6/uL (4.70-6.10); Red Cell Dist. Width 13.3 % (11.5-14.5); White Blood Cell Count 25.2 10^3/uL (4.8-10.8)
--- NOTE | 2025-01-14 10:18 | CM ---
CM attempted to meet with pt, however sleeping.
[2025-01-14] MEDS: HALDOL 1 MG IV (11:54)
[2025-01-14 13:01] LABS: AST (SGOT) 65 U/L (17-59); Albumin 4.2 g/dl (3.5-5.0); Alkaline Phosphatase 69 U/L (38-126); Blood Urea Nitrogen 26 mg/dl (9-20); Calcium 8.9 mg/dl (8.4-10.2); Carbon Dioxide 25 mmol/L (22-30); Chloride 99 mmol/L (98-107); Estimated Creatinine Clearance 66 ml/min; Glucose 95 mg/dl (70-99); Magnesium 2.7 mg/dl (1.6-2.3); Potassium 3.4 mmol/L (3.5-5.1); Sodium 133 mmol/L (135-145); Total Bilirubin 1.3 mg/dl (0.2-1.3); Total Protein 6.6 g/dl (6.3-8.2); eGFR > 60.00
[2025-01-14 13:06] LABS: ALT (SGPT) 125 U/L (0-50)
[2025-01-14 13:06] LABS: Urine Albumin Negative (Neg - Trace); Urine Bilirubin Negative (Negative); Urine Character Clear (Clear); Urine Color Yellow; Urine Glucose Negative (Negative); Urine Ketone Negative (Negative); Urine Leukocyte Negative (Negative); Urine Nitrite Negative (Negative); Urine Occult Blood Negative (Negative); Urine Urobilinogen Negative (Neg - 1+)
[2025-01-14] MEDS: MELATONIN 5 MG PO (21:18)
[2025-01-15] MEDS: NSS with KCL 20 MEQ 1000 IV (04:32)
[2025-01-15 07:00] VITALS: BP 110/70
[2025-01-15 08:00] LABS: % Basophils 0.1 % (0-2); % Eosinophils 0.1 % (0-6); % Immature Granulocytes 0.4 % (0-0.5); % Lymphocytes 33.6 % (20.5-51.1); % Monocytes 13.4 % (1.7-9.3); % Neutrophils 52.4 % (42.2-75.2); Absolute Lymphocytes 3.7 10^3/uL (1.2-3.4); Absolute Monocytes 1.5 10^3/uL (0.1-0.6); Absolute Neutrophils 5.7 10^3/uL (1.4-6.5); Hematocrit 32.3 % (39.0-52.0); Hemoglobin 11.3 g/dL (13.0-18.0); Mean Corpuscular Hgb 29.9 pg (27.0-31.0); Mean Corpuscular Volume 85.4 fL (80.0-94.0); Mean Platelet Volume 11.8 fL (7.4-10.4); Nucleated Red Blood Cells % 0 % (-); Platelet Count 203 10^3/uL (130-400); Red Blood Cell Count 3.78 10^6/uL (4.70-6.10); Red Cell Dist. Width 13.8 % (11.5-14.5); White Blood Cell Count 10.9 10^3/uL (4.8-10.8)
[2025-01-15 08:24] LABS: Carbon Dioxide 24 mmol/L (22-30)
[2025-01-15] MEDS: NSS (PRESERVATIVE FREE) 10 ML IV (08:39)
[2025-01-15] MEDS: PROTONIX IV 40 MG IV (08:39)
[2025-01-15 08:40] LABS: ALT (SGPT) 96 U/L (0-50); AST (SGOT) 50 U/L (17-59); Albumin 3.5 g/dl (3.5-5.0); Alkaline Phosphatase 58 U/L (38-126); Blood Urea Nitrogen 12 mg/dl (9-20); Calcium 8.5 mg/dl (8.4-10.2); Chloride 109 mmol/L (98-107); Estimated Creatinine Clearance 123 ml/min; Glucose 100 mg/dl (70-99); Magnesium 2.2 mg/dl (1.6-2.3); Phosphorus 2.4 mg/dl (2.5-4.5); Sodium 137 mmol/L (135-145); Total Bilirubin 0.9 mg/dl (0.2-1.3); Total Protein 5.5 g/dl (6.3-8.2); eGFR > 60.00
--- NOTE | 2025-01-15 08:51 | W.PN.HOSP.TC ---
Today's Communication/Plan
-
dc
Assessment / Plan
Assessment / Plan
29yo M with PMHX of recurrent cannabis hyperemesis came with same symptoms of nausea, vomiting and inability to keep food or liquid down. Still uses cannabis for recreational purposes, denied medciating himself for anxiety. Hot shower brought some
relief at home, but since was not able to eat or drink - came to ED. Labs improved rapidly, patient able to keep the food down. Extensively counselled on cessation of smoking. Medcially stable for d/c home
A/P:
#Cannabis hyperemesis syndrome
#Concern for substance abuse
improving
Compazine
DIet as tolerated
COunceled on cessation
UDS positive for marijuana and barbiturates
#DANAE
#Hypokalemia
#Reactive leukocytosis - resolved
#Hyponatremia
#Hypercalcemia
#Transaminitis
#Indirect bilirubinemia
abnormalities resolved
Lipase WNL
No abdominal tenderness, previous CT abd without acute findings during same presentation. fatty liver disease noted
Advised outpatient GI for EGD and liver tests - patient verbalized understanding and agreement with plan
2/2 hyperemesis
IVF
follow LFT and electrolytes
Correct electrolytes as needed
PTH WNL - calcium improved on hydration, was most likely elevated 2/2 dehydration with vomiting
hepatitis panel pending - outpatient f/u
Advise low fat diet
DVT ppx hep
Full code
I have spent at least 37min reviewing chart, test results, communication with consulktants and providing direct patient care
Anticipated Discharge: Today
Subjective/Interval History
-
Date of Service: January 15, 2025
Objective Data
-
Labs:
Laboratory Results
01/15/25
05:17
WBC 10.9 H
Hgb 11.3 L
Hct 32.3 L
Plt Count 203
Sodium 137
Potassium 4.0
Chloride 109 H
Carbon Dioxide 24
BUN 12
Creatinine 0.8
Glucose 100 H
Calcium 8.5
Total Bilirubin 0.9
AST 50
ALT 96 H
Alkaline Phosphatase 58
Vital Signs:
Vital Signs
Temp Pulse Resp BP Pulse Ox
98.2 F 73 14 110/70 98
01/15/25 07:00 01/15/25 07:00 01/15/25 07:00 01/15/25 07:00 01/15/25 07:00
I&O
01/14/25 01/15/25 01/16/25
06:59 06:59 06:59
Intake Total 2160 / 2160
Output Total 400 / 400
Balance 1760 / 1760
Review of Systems
-
History Source: Patient
All other systems: Reviewed and negative
Abdomen/GI: Denies Abdominal Pain, Nausea or Vomiting
Physical Exam
-
General: No Apparent Distress
HEENT: Normocephalic
GI: Soft, Nontender and Nondistended
Neuro: Awake, Alert, Oriented and AO x 3
Psych: Calm
--- NOTE | 2025-01-15 08:56 | W.DCSUMMARY ---
Discharge Summary
Discharge Data
Date of Admission: 01/14/25
Date of Discharge: 01/15/25
-
Pending Results: Yes
Additional Pending Results:
hepatitis panel
Hospital Course
29yo M with PMHX of recurrent cannabis hyperemesis came with same symptoms of nausea, vomiting and inability to keep food or liquid down. Still uses cannabis for recreational purposes, denied medciating himself for anxiety. Hot shower brought some
relief at home, but since was not able to eat or drink - came to ED. Labs improved rapidly, patient able to keep the food down. Extensively counselled on cessation of smoking. Medcially stable for d/c home
I have spent at least 37min reviewing chart, test results, communication with consulktants and providing direct patient care
Patient was managed for:
#Cannabis hyperemesis syndrome
#Concern for substance abuse
#DANAE
#Hypokalemia
#Reactive leukocytosis - resolved
#Hyponatremia
#Hypercalcemia
#Transaminitis
#Indirect bilirubinemia
Discharge Plan
-
Patient Disposition: Home (Routine Discharge)
Discharge Diagnosis/Procedures: cannabis hyperemesis syndrome
Condition: Fair
Diet: Regular
Driving Restrictions: As prior to admission
Referrals:
UNKNOWN - PT DOES,NOT KNOW [Family Provider] -
Prescriptions:
Continued
famotidine [Pepcid] 20 mg Tablet
20 mg PO DAILY PRN (Reason: heartburn)
Discharge Orders:
Discharge Patient (As Directed); Ordered 01/15/25
Ordered By: Rafael Hendrix
Discharge Date and Time
Print Language: HEBREW
[2025-01-16 18:50] LABS: Hepatitis B Surface Antigen Negative (Negative)
[2025-01-16 19:07] LABS: Hepatitis B Core Ab, Total Negative (Negative); Hepatitis B Surface Antibody Negative; Hepatitis C Antibody Negative (Negative)
== END 2025-01-15 09:40 | disposition home or self-care (01) | DRG 683 ==
LOC: 2 NORTH 05:04
PROVIDERS: ADMITTING PHYSICIAN Hospitalist; ATTENDING PHYSICIAN Internal Medicine; EMERGENCY PHYSICIAN Emergency Medicine
DX: N17.9 Acute kidney failure, unspecified (principal); E87.1 Hypo-osmolality and hyponatremia; E87.20 Acidosis, unspecified; R17 Unspecified jaundice; R11.2 Nausea with vomiting, unspecified; E87.6 Hypokalemia; F41.1 Generalized anxiety disorder; E83.52 Hypercalcemia; D72.829 Elevated white blood cell count, unspecified; F12.988 Cannabis use, unspecified with other cannabis-induced disorder; I50.9 Heart failure, unspecified; R74.01 Elevation of levels of liver transaminase levels
CPT/HCPCS: 71046; 80053; 80306; 81003; 82248; 83615; 83690; 83735; 83970; 84100; 84443; 85025; 85027; 85045; 86704; 86706; 86803; 87040; 87340; 93005; 96361; 96374; 96375; 99284

== ENCOUNTER 2025-03-08 16:43 | Inpatient (IN) | payer OTHER, SELFPAY ==
[2025-03-08 13:55] VITALS: BP 73/57
[2025-03-08 14:13] VITALS: BMI 27.4
[2025-03-08] MEDS: HALDOL 2.5 MG IV ×2 (14:13→15:24)
[2025-03-08] MEDS: NSS 2000 IV (14:14)
[2025-03-08 14:49] LABS: Hematocrit 47.8 % (39.0-52.0); Hemoglobin 17.7 g/dL (13.0-18.0); Mean Corp Hgb Conc. 37.0 g/dL (33.0-37.0); Mean Corpuscular Volume 78.4 fL (80.0-94.0); Platelet Count 360 10^3/uL (130-400); Red Cell Dist. Width 12.9 % (11.5-14.5)
[2025-03-08 14:52] LABS: Albumin > 6.0 g/dl (3.5-5.0); Alkaline Phosphatase 92 U/L (38-126); Blood Urea Nitrogen 59 mg/dl (9-20); Calcium 10.1 mg/dl (8.4-10.2); Carbon Dioxide 19 mmol/L (22-30); Chloride 65 mmol/L (98-107); Glucose 114 mg/dl (70-99); Magnesium 2.0 mg/dl (1.6-2.3); Potassium 3.0 mmol/L (3.5-5.1); Sodium 127 mmol/L (135-145); Total Protein 10.3 g/dl (6.3-8.2)
--- NOTE | 2025-03-08 15:19 | ED.GENMED ---
History of Present Illness
General
Chief Complaint: Abdominal Symptoms
Source: patient
Time Seen by Provider: 03/08/25 14:11
History of Present Illness
History of Present Illness:
29-year-old male with past medical history of cannabinoid hyperemesis syndrome presenting to the emergency department for evaluation due to persistent nausea and vomiting since Thursday morning, has been unable to tolerate anything orally, no pain
associated with this. Patient did not take anything for his symptoms prior to arrival. Patient notes that his last use of cannabis was on Thursday. Denies any other medical conditions. No fevers, chills, rigors. Patient was admitted for similar
back in December due to significant electrolyte derangement and dehydration with continued inability to tolerate p.o.
Past History
Past History
ED Past Medical History: Psychiatric (Anxiety) and Other (Constipation, CHS)
ED Past Surgical History: Orthopedic
Social History
Tobacco: Non-smoker
Alcohol: None
Drug: Marijuana (daily, cutting back)
Personal: Single
Living: with family
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
Family History
Family History: Other (Noncontributory)
Review of Systems
Review of Systems
All Other Systems: ROS reviewed and negative except as documented in HPI and ROS
Phy Exam
Physical Exam
Physical Exam:
GENERAL: Alert , in no apparent distress, acutely ill-appearing but nontoxic
EYE: Clear conjunctiva
NECK: Supple
ENT: o/p clr, dry mucous membranes
CARDIAC: Tachycardic rate and normal rhythm
LUNGS: Clear breath sounds bilaterally, no acute respiratory distress, no wheezes/rales/rhonchi
ABDOMEN: Soft, without focal tenderness, no r/g, no cvat
NEUROLOGICAL: Alert and oriented
SKIN: Warm and dry, skin intact.
MUSCULOSKELETAL: No edema, well perfused.
PSYCH: Normal and appropriate interaction.
Scores
Heart Failure Risk
Heart Failure Risk Score: Not Applicable
Heart Score for Chest Pain Patients
STEMI patient?: Not applicable
Withdrawal Assessment of Alcohol
Withdrawal Assessment Completed?: Not applicable
Sepsis
Sepsis Screening
Sepsis Assessment: Severe Sepsis
Sepsis Screening: Lactate >/=4mmol/L and ARF-Creatinine >2.0
Sepsis Screen
Sepsis Screen: Severe Sepsis
Date: 03/08/25
Time: 19:00
Course
Orders/Labs/Results
Orders:
Orders
03/08/25 14:05
Electrocardiogram (*1) Urgent
Reason for Study: Chest Pain
EKG- Treatment ONCE
03/08/25 14:11
0.9% Sodium Chloride 1000 ml [Nss] 2,000 ml IV BOLUS
Haloperidol Lactate [Haldol] 2.5 mg IV NOW STA
03/08/25 14:17
Complete Blood Count/With Diff Urgent
Comprehensive Metabolic Panel Urgent
Magnesium Urgent
03/08/25 14:59
Haloperidol Lactate [Haldol] 2.5 mg IV NOW STA
03/08/25 Dinner
Clear Liquid
At Your Request: Full Participation
Does patient need a safe tray?: No
0.9% Sodium Chloride 500 ml [Nss] 500 ml IV BOLUS
03/08/25 15:19
Lactic Acid Q4H
Comment: CANCEL 2nd LACTIC ACID IF 1st LACTIC ACID IS LESS THAN 2
Blood Culture Q30M
TAYA Source: Blood/Venous
Specimen Description:
03/08/25 15:20
Blood Culture Q30M
TAYA Source: Blood/Venous
Specimen Description:
03/08/25 15:59
Venous Blood Gas Urgent
%Oxygen/Room Air: RA
03/08/25 16:24
Urinalysis Reflex To Culture Urgent
Date Specimen was Collected: 03/08/25
Time Specimen was Collected: 16:23
Urine Drug Abuse Screen Urgent
Date Specimen was Collected: 03/08/25
Time Specimen was Collected: 16:23
Urine Microscopic Reflex Cult Urgent
Urine Culture Urgent
TAYA Source: U
Specimen Description:
Date Specimen was Collected: 03/08/25
Time Specimen was Collected: 16:23
03/08/25 16:27
Admit/Transfer Patient As Directed
Co-Sign Provider:
Level of Care: Inpatient admission
Assign to:: Telemetry
Physician / Group: Summer, Efren
Diagnosis: DANAE, hyperemesis
Reason for Telemetry: Arrhythmia
Date to Stop Telemetry: 03/11/25
Time to Stop Telemetry: 11:00
Reason for Hospitalization: DANAE, hyperemesis
Expected length of stay greater than two midnights?: Yes
ELOS- Estimated Length of Stay in days: 2
I certify the patient meets the requirements for IP care: Yes
03/08/25 16:28
PRN Pain Medication Management As Directed
May give lesser potent ordered pain med per pt: Yes
preference::
Protocol:: Medication orders for pain may be administered in a
manner that supports deferring to patient preference
when the pt is:
- Requesting an ordered lesser potent pain medication.
Least to most potent pain medications are defined
as: acetaminophen < NSAID < tramadol < opioids
(morphine, oxycodone, hydromorphone).
- Requesting a lesser dose of the same medication IF
ORDERED.
- Requesting a less intrusive route of administration
if both routes are prescribed by the provider (PO <
IV).
03/08/25 16:29
Code Status As Directed
Resuscitation Status: Full Code
03/08/25 18:32
0.9% Sodium Chloride 1000 ml [Nss] 1,000 ml IV 125 mls/hr
Acetaminophen [Tylenol] 650 mg PO Q4HPRN PRN
03/08/25 18:32
Activity As Directed
Activity Level: Ambulate
Intake/ Output As Directed
Frequency: Per unit guidelines
Pneumatic Compression Sleeves As Directed
Type: Knee high
Vital Signs As Directed
Frequency: Per unit guidelines
Weight As Directed
Frequency: Once
Comment: on admission
DX Deep Vein Thrombosis Video Routine
03/08/25 19:15
Lactic Acid Q4H
Comment: CANCEL 2nd LACTIC ACID IF 1st LACTIC ACID IS LESS THAN 2
03/08/25 19:30
Haloperidol Lactate [Haldol] 1 mg IV Q4HPRN PRN
03/09/25 00:00
BMP [Basic Metabolic Panel] Routine
Magnesium Routine
03/09/25 06:00
EKG [Electrocardiogram (*1)] IN AM
Reason for Study: QTc Monitoring
Complete Blood Count/No Diff IN AM
Comprehensive Metabolic Panel IN AM
Magnesium IN AM
03/11/25 11:00
DC Protocol for Telemetry ONCE
Abnormal Lab Results
03/08/25 03/08/25 03/08/25
14:17 15:19 15:59
WBC 39.8 H 10^3/uL
(4.8-10.8)
MCV 78.4 L fL
(80.0-94.0)
MPV 11.4 H fL
(7.4-10.4)
Abs Immat Gran (auto) 0.5 H 10^3/uL
(0-0.05)
Absolute Neuts (auto) 32.8 H 10^3/uL
(1.4-6.5)
Absolute Monos (auto) 3.9 H 10^3/uL
(0.1-0.6)
Immature Gran % 1.2 H %
(0-0.5)
Neutrophils % 82.2 H %
(42.2-75.2)
Lymphocytes % 6.4 L %
(20.5-51.1)
Monocytes % 9.8 H %
(1.7-9.3)
VBG pH 7.51 H
(7.32-7.43)
VBG pCO2 33 L mmHg
(35-48)
VBG pO2 77 H mmHg
(30-50)
Sodium 127 L mmol/L
(135-145)
Potassium 3.0 L mmol/L
(3.5-5.1)
Chloride 65 L mmol/L
(98-107)
Carbon Dioxide 19 L mmol/L
(22-30)
BUN 59 H mg/dl
(9-20)
Creatinine 6.8 H* mg/dL
(0.7-1.3)
Glucose 114 H mg/dl
(70-99)
Lactic Acid 6.3 H* mmol/L
(0.7-2.0)
Total Bilirubin 1.5 H mg/dl
(0.2-1.3)
AST 94 H U/L
(17-59)
ALT 143 H U/L
(0-50)
Total Protein 10.3 H g/dl
(6.3-8.2)
Albumin > 6.0 H g/dl
(3.5-5.0)
Ur Occult Blood Reflex
Urine RBC
Urine Bacteria (Reflex)
Urine Albumin (Reflex)
U Marijuana (THC) Screen
03/08/25
16:24
WBC
MCV
MPV
Abs Immat Gran (auto)
Absolute Neuts (auto)
Absolute Monos (auto)
Immature Gran %
Neutrophils %
Lymphocytes %
Monocytes %
VBG pH
VBG pCO2
VBG pO2
Sodium
Potassium
Chloride
Carbon Dioxide
BUN
Creatinine
Glucose
Lactic Acid
Total Bilirubin
AST
ALT
Total Protein
Albumin
Ur Occult Blood Reflex 4+ A
(Negative)
Urine RBC 3-6 A /HPF
(0-2)
Urine Bacteria (Reflex) Many A
(Negative)
Urine Albumin (Reflex) 3+ A
(Neg - Trace)
U Marijuana (THC) Screen Positive H
(Negative)
03/08/25 14:17
03/08/25 14:17
Vital Signs
Initial and Last Documented VS:
Initial Vital Signs
Temp Pulse Resp BP Pulse Ox
98.7 F 148 24 73/57 98
03/08/25 13:55 03/08/25 13:55 03/08/25 13:55 03/08/25 13:55 03/08/25 13:55
Last Documented Vital Signs
Temp Pulse Resp BP Pulse Ox
98.7 F 106 33 141/94 96
03/08/25 13:55 03/08/25 17:10 03/08/25 17:00 03/08/25 17:00 03/08/25 16:30
MDM/Problems Addressed
Differential Diagnosis Includes:
Cannabinoid hyperemesis
Severe dehydration
Electrolyte imbalance
Metabolic acidosis
Acute surgical abdomen thought to be less likely given lack of pain and no tenderness on exam
Medication side effect
MDM/Problems Addressed:
29-year-old male presenting to the ER for evaluation of persistent nausea and vomiting and inability to tolerate p.o. over the last 3 days. Patient arrives to the ER hypotensive and tachycardic in triage, brought immediately back into the ER and by
time I entered the room patient's blood pressure was already improved to 110/70. Will treat with 2 L sepsis fluid bolus. Labs ordered. Patient states that he has done well with Haldol in the past so we will treat with this. Disposition pending
Chronic conditions affecting care: Other (Cannabinoid hyperemesis syndrome)
Acute Exacerbation and/or Progression of Chronic Illness: Other (Cannabinoid hyperemesis)
*Pulse Oximetry
SaO2: 98
Oxygen Mode of Delivery: Room air
Patient hypoxic: no
*Critical Care Note
Total Time (30-74mins, 75-104mins- exclusive of procedures): 30
comment:
Critical care statement: A total of 30 minutes of critical care time was provided for this patient. This includes management of unstable vital signs, evaluation of the patient at bedside, reviewing the patient's pertinent medical records, discussion
with consultants, review of old EKGs and review of pertinent medical records. This time with separate from time utilized to perform the aforementioned documented procedures
Data Reviewed
Review of Other/Old Records Reveals: Labs, Records and Discharge Summary
Source: patient and records
Patient Management
Discussion with other providers: Hospitalist and Cargo Agent
Escalation/DeEscalation of care consider admission/obs:
Patient with significant lab abnormalities, leukocytosis of 39,000, leftward shift, significant acute kidney injury likely due to prerenal azotemia from dehydration. Patient vital signs significantly improved with sepsis fluid bolus. Still doubt
any infectious etiology and suspect leukocytosis is likely reactive from vomiting and dehydration. Will defer any antibiotics to the hospitalist team. I notified nephrology given the patient's significant acute kidney injury. Hospitalist team
accepts for continued evaluation and treatment.
ED Attending Note
-
Portions of this chart may have been created with voice recognition software.� Occasional wrong word or��sound alike� substitutions may have occurred due to the inherent limitations of voice recognition software.
Discharge Plan
Departure
Patient Disposition: Admit
Date of Disposition: 03/08/25
Time of Disposition: 15:52
Presentation/result/management discussed w/ accepting MD/DO: Hospitalist
Discharge Problem:
Cannabinoid hyperemesis syndrome, Acute renal failure (ARF), Acute dehydration
Interventions
Interventions:
*Risk Screen - Suicide Last Done: 03/08/25 13:55
*General Assessment Last Done: 03/08/25 13:55
*Neglect/Abuse Screening Last Done: 03/08/25 13:55
*ED- Fall Risk Assessment Last Done: 03/08/25 17:11
*ED COVID-19 Vaccine History Last Done: 03/08/25 17:11
*Nursing Disposition Last Done: 03/08/25 18:07
XJ-Xxpfvz-Larzavbqhu Assessment Last Done: 03/08/25 17:11
Discharge Date and Time
Discharge Date/Time: 03/08/25 18:29
[2025-03-08] MEDS: NSS 500 IV (15:25)
[2025-03-08 15:40] LABS: Nucleated Red Blood Cells % 0 % (-)
[2025-03-08 15:47] LABS: AST (SGOT) 94 U/L (17-59); Estimated Creatinine Clearance 14 ml/min; eGFR 10.47
--- NOTE | 2025-03-08 15:53 | HPS.HSE ---
Family Physician
-
Family Physician: Eugene Connolly
Chief Complaint
-
nausea and vomiting
History of Present Illness
Patient is a 29-year-old male with past medical history significant for cannabinoid hyperemesis and anxiety who presented to [facility] ED for evaluation of persistent nausea and vomiting since Thursday03/06/2025. Patient reports being unable to tolerate
anything orally. Denies any fever, chills, dizziness, abdominal pain, constipation or diarrhea. Patient had recent hospitalization for similar in December 2024. Patient states the last day of cannabis use was Thursday03/06/2025.
Medical History
Past Medical History
Past Medical History: Reports Other
Additional Past Medical History:
Cannabinoid Hyperemesis
Anxiety
Past Surgical History: Reports Other
Additional Past Surgical History:
Left Ankle Surgery
Social History
Tobacco: Non-smoker
Alcohol: None
Drug: Marijuana (Daily use. Last 2 days ago. No other illicit substance use.)
Living: With Family
Family History
Family History: Not pertinent
Allergies / Home Medications
Allergies reflects when Allergies were last updated in [facility].
Home Medications with original date entered in [facility]
Allergy/Medication List:
Allergies
Allergy/AdvReac Type Severity Reaction Status Date / Time
No Known Allergies Allergy Verified 03/08/25 14:04
Home Medications
potassium 1 tab PO .3-4 TIMES A WEEK PRN supplement 03/08/25
Review of Systems
-
History Source: Patient
Constitutional: Denies Fever or Chills
EENT: Denies Sore Throat
Respiratory: Reports No Symptoms
Cardiac: Reports No Symptoms
Abdomen/GI: Reports Nausea, Vomiting and Anorexia; Denies Abdominal Pain, Diarrhea or Constipated
: Reports No Symptoms
Musculoskeletal: Reports No Symptoms
Skin: Reports No Symptoms
Neurological: Reports No Symptoms
Endocrine: Reports No Symptoms
Hematologic/Lymphatic: Reports No Symptoms
Psych: Reports No Symptoms
Physical Exam
Vital Signs
Vital Signs
Temp Pulse Resp BP Pulse Ox
98.7 F 148 24 73/57 98
03/08/25 13:55 03/08/25 13:55 03/08/25 13:55 03/08/25 13:55 03/08/25 15:27
Physical Exam
General: Well Developed, Well Nourished, No Apparent Distress and Obese
HEENT: NormoCephalic, Moist mucous membranes and Atraumatic
Respiratory: Clear
Cardiac: S1/S2 and Regular Rhythm; No Murmur, Rub or Gallop
Breast: Deferred by me
GI: Soft, Non Tender, Non Distended and Normal Bowel Sounds; No Organomegaly
Rectal: Deferred by Provider
Genito-urinary: Deferred by me
Musculoskeletal: No Clubbing, No Cyanosis and No Edema
Skin: Warm and IV/Catheter Site
Neuro: Awake, Alert, AO x 3 and Nonfocal/grossly intact
Psych: Calm
Laboratory Results
-
03/08/25 14:17
03/08/25 14:17
Laboratory Results
Lactic Acid 6.3 mmol/L (0.7-2.0) H* 03/08/25 15:19
Total Bilirubin 1.5 mg/dl (0.2-1.3) H 03/08/25 14:17
AST 94 U/L (17-59) H 03/08/25 14:17
Alkaline Phosphatase 92 U/L (38-126) 03/08/25 14:17
Data Reviewed
-
Medical Tests (Nuc Med, Echo, EKG etc): Report Reviewed by me (EKG: SINUS TACHYCARDIA WITH SHORT DE RIGHT ATRIAL ENLARGEMENT RIGHT AXIS DEVIATION PULMONARY DISEASE PATTERN MARKED ST ABNORMALITY, POSSIBLE INFERIOR SUBENDOCARDIAL INJURY)
Lab Data: Labs Reviewed by me (WBC 39.8, Neut 82.2, Na+ 127, K+ 3.0, HCO3 19, BUN 59, Creat 6.8, est CrCl 14, eGFR 10.47, Lactic 6.3, Tot Bili 1.5, AST 94, ALT 143, Tot protein 10.3, Albumin >6.0)
Impression/Plan
-
IMPRESSION/PLAN:
#acute kidney injury likely 2/2 cannabinoid hyperemesis
WBC 39.8, Neut 82.2, Na+ 127, K+ 3.0, HCO3 19, BUN 59, Creat 6.8, est CrCl 14, eGFR 10.47, Lactic 6.3, Tot Bili 1.5, AST 94, ALT 143, Tot protein 10.3, Albumin >6.0
EKG: SINUS TACHYCARDIA WITH SHORT DE
RIGHT ATRIAL ENLARGEMENT
RIGHT AXIS DEVIATION
PULMONARY DISEASE PATTERN
MARKED ST ABNORMALITY, POSSIBLE INFERIOR SUBENDOCARDIAL INJURY
- Admit to telemetry
- NSS 125cc/hr
- monitor labs closely, has had correction with aggressive IVF in past
- Haldol PRN for antiemetic
- EKG to monitor QTc
- repeat BMP and Mag at 0000
- encourage cannabis cessation
#Anxiety
Code status: Full code
DVT prophylaxis: SCDs
[2025-03-08 15:55] LABS: ALT (SGPT) 143 U/L (0-50)
[2025-03-08 16:07] LABS: Venous Blood Gas B.E. 3.8 mmol/L (-4 to +4); Venous Blood Gas O2 Sat % 95.8 %
[2025-03-08 16:20] VITALS: BP 147/92
--- NOTE | 2025-03-08 16:27 | W.PN.UPDATE ---
Update Note
Progress Note Update
This note serves as an addendum to the H&P by extrusion utility worker OCTAVIANO
Chey Guerra
HPI
29y M with PMH significant for cannabinoid hyperemesis who presents to ED
- last smoked marijuana on 03/06/25Thursday about 2-3 days ago prior to onset of symptoms.
- typically smokes daily.
- due to persistent nausea and vomiting since Thursday morning, has been unable to tolerate anything orally
- no pain associated with this.
- Denies any other medical conditions.
- No fevers, chills, rigors.
- admitted for similar back in December due to significant electrolyte derangement and dehydration with continued inability to tolerate p.o.
Vital Signs
Temp Pulse Resp BP Pulse Ox
98.7 F 148 24 73/57 98
03/08/25 13:55 03/08/25 13:55 03/08/25 13:55 03/08/25 13:55 03/08/25 15:27
PE
Gen: mild distress due to nausea.
HEENT: Dry MM. Neck supple. Cystic lesion lateral to R eye
Neck:
Lungs:
Cor: S1/S2 Tachycardic
Abdomen: Soft, Non Tender, Non Distended
ASSOCIATE PROFESSOR OF GEOGRAPHY: AAO3
Psych: Normal and appropriate interaction.
Labs
01/15/25 03/08/25 03/08/25
05:17 14:17 15:19
WBC 39.8 H
Sodium 127 L
Potassium 3.0 L
Chloride 65 L
Carbon Dioxide 19 L
BUN 59 H
Creatinine 0.8 6.8 H*
eGFR > 60.00 10.47
Lactic Acid 6.3 H*
Total Bilirubin 1.5 H
AST 94 H
ALT 143 H
Last hospitalist admission: 01/14/25 - 01/15/25
Cannabis hyperemesis syndrome
Concern for the other substance abuse
DANAE
Hypokalemia
Reactive leukocytosis - resolved
Hyponatremia
Hypercalcemia
Transaminitis
Indirect bilirubinemia
ASSESSMENT & PLAN
Pending Rx reconciliation
Cannabinoid Hyperemesis syndrome
Severely contracted volume
Severe DANAE secondary to the above
Anion Gap Metabolic Acidosis
Hyponatremia
Hypokalemia
Hypercalcemia
- check Mg
- Marked electrolyte abnormalities and DANAE due to volume losses - similar to prior presentations.
- Aggressive IVF NS @ 120/H
- electrolyte replacement (NSS + KCl for now).
- Antiemetics / Haldol for hyperemesis.
- Follow for improvement in labs / lytes.
- Has had rapid correction in the past with IVFs.
- Encourage cessation of THC moving forward.
Generalized Anxiety
- Uncontrolled. Follow-up with PCP or formal Psych eval as an outpatient.
- Would likely benefit from pharmacologic alternative to THC.
DVT Prophylaxis: SCDs
Code Status: Full
IP TLM
[2025-03-08 16:31] LABS: Urine Character Clear (Clear)
--- NOTE | 2025-03-08 16:34 | W.CON.NEPH ---
Addendum entered and electronically signed by Solitario Encarnacion MD 03/08/25 18:13:
Resident note below reviewed and agree with the following additions
29-year-old with chronic and opioid abuse who visits in the past returns for intractable nausea and dehydration beginning on Thursday this week. He states that he had discontinued smoking marijuana at that time. Nausea has occurred essentially every
2 hours even waking him up from sleep. He tries to eat and drink but this continues to be vomited. He has taken no jjxm-vgv-[id number] medications. He developed no lightheadedness or weakness. It was abdominal pain from vomiting prompted his ER
visit. Here he was noted to have acute kidney injury with a creatinine of 6.8 hyponatremia, hypokalemia, significant hypotension. He also had metabolic acidosis anion gap. He is currently critically ill. He did receive 2.5 L of saline in the
emergency room
I agree with the physical exam
Labs reviewed including prior labs from prior visits.
EKG 03/08/2025 by my reading sinus tachycardia right axis deviation inferior ST abnormality
Impression
Acute kidney injury
anion gap metabolic acidosis
Cannabinoid hyperemesis syndrome, recurrent
Cannabis use disorder, daily
Lactic acidosis
Hypokalemia
Hyponatremia
Hypochloremia
Elevated transaminases
Hyperbilirubinemia
Leukocytosis
Sinus tachycardia
Plan
Aggressive IV fluid resuscitation
Replete potassium
Follow BMP
No urgent need for dialysis at this time
Counseled once more on marijuana cessation
Critical care time spent 31 minutes
Original Note:
Consultation
-
Date/Time Consultation Requested: 03-08-25
Date/Time Consultation Performed: 03-08-25
Performing Provider: Dr. Solitario Encarnacion
Reason for Consultation: DANAE
Medical History
-
Chief Complaint: Intractable vomiting
History of Present Illness:
Nirav Pena, 29-year-old with recurrent cannabinoid hyperemesis syndrome (13 emergency visits and 5 admissions for the same, including 9 previous AKIs) in the past 3 years, is admitted for intractable nausea, dehydration and an acute kidney
injury with serum creatinine of 6.8. He last smoked marijuana on 03-05-25 after which he has been vomiting pretty much constantly. Not able to hold much of his oral intake. Nothing helped and he came to the emergency.
Past Medical History
Past Medical History: Other (Cannabis use disorder; Cannabinoid hyperemesis syndrome; Anxiety)
Past Surgical History: Other (Left ankle surgery)
Social History
Alcohol: Occasional
Drug: Marijuana (Daily)
Family History
Family History: Not Pertinent
Allergies / Home Medications
Allergy/AdvReac Type Severity Reaction Status Date / Time
No Known Allergies Allergy Verified 03/08/25 14:04
�Medication �Instructions �Recorded �Confirmed �Type
potassium 1 tab PO .3-4 TIMES A WEEK PRN 03/08/25 03/08/25 History
supplement
Review of Systems
-
History Source: Patient
All other systems: Negative unless noted
Constitutional: Fatigue
EENT: No Symptoms
Respiratory: No Symptoms
Cardiac: No Symptoms
Abdomen/GI: Abdominal Pain, Nausea and Vomiting
: Dark Urine
Musculoskeletal: No Symptoms
Skin: No Symptoms
Neurological: No Symptoms
Endocrine: No Symptoms
Hematologic/Lymphatic: No Symptoms
Physical Exam
Vital Signs
Vital Signs
Temp Pulse Resp BP Pulse Ox
98.7 F 148 24 73/57 98
03/08/25 13:55 03/08/25 13:55 03/08/25 13:55 03/08/25 13:55 03/08/25 15:27
Lab Results
WBC 39.8 10^3/uL (4.8-10.8) H 03/08/25 14:17
RBC 6.10 10^6/uL (4.70-6.10) 03/08/25 14:17
Hgb 17.7 g/dL (13.0-18.0) 03/08/25 14:17
Hct 47.8 % (39.0-52.0) 03/08/25 14:17
Plt Count 360 10^3/uL (130-400) 03/08/25 14:17
Sodium 127 mmol/L (135-145) L 03/08/25 14:17
Potassium 3.0 mmol/L (3.5-5.1) L 03/08/25 14:17
Chloride 65 mmol/L (98-107) L 03/08/25 14:17
Carbon Dioxide 19 mmol/L (22-30) L 03/08/25 14:17
BUN 59 mg/dl (9-20) H 03/08/25 14:17
Creatinine 6.8 mg/dL (0.7-1.3) H* 03/08/25 14:17
eGFR 10.47 03/08/25 14:17
Glucose 114 mg/dl (70-99) H 03/08/25 14:17
Calcium 10.1 mg/dl (8.4-10.2) 03/08/25 14:17
Albumin > 6.0 g/dl (3.5-5.0) H 03/08/25 14:17
Physical Exam
General: Nontoxic
HEENT: Anicteric and Conjunctivae Clear
Respiratory: Clear and Nonlabored Respirations
Cardiac: S1/S2, Regular Rate/Rhythm and Other (Tachycardia)
Abdomen: Soft, Nontender and Nondistended
Genito-urinary: No Costovertebral Tender
Musculoskeletal: No Clubbing, No Cyanosis and No Edema
Skin: No Rash and No Bruising
Neuro: Nonfocal/Grossly Intact
Psych: Appropriate; Negative Insight/judgement good
Assessment/Plan
-
Impression
Acute kidney injury
High anion gap metabolic acidosis
Cannabinoid hyperemesis syndrome, recurrent
Cannabis use disorder, daily
Lactic acidosis
Hypokalemia
Hyponatremia
Hypochloremia
Elevated transaminases
Hyperbilirubinemia
Leukocytosis
Sinus tachycardia
Plan
13 emergency visits and 5 admissions for cannabinoid hyperemesis syndrome, including at least 9 AKIs in the past 3 years at [facility].
Likely pre-renal - this has been the case historically with his hyperemesis syndrome with accompanying cannabinoid abuse.
Aggressive IV fluid resuscitation.
Follow BMP.
Strongly recommended abstaining from further cannabis use.
[2025-03-08 16:41] LABS: Urine White Cell 0-2 /HPF (0-5)
[2025-03-08 17:00] VITALS: BP 141/94
[2025-03-08 18:30] VITALS: BP 153/93; BMI 25.2
[2025-03-08] MEDS: KCL 270 MEQ IV (19:25)
[2025-03-08] MEDS: NSS 1000 IV (19:25)
[2025-03-08 19:58] VITALS: BP 127/86
[2025-03-08 23:08] VITALS: BP 125/86
--- NOTE | 2025-03-09 01:35 | PTCARENOTE ---
Patient received from day shift with IVF and IV Potassium infusing. He is sleeping intermittently. He is tolerating clear liquids, voiding clear yellow. HRR,ST on tele, breath sounds are CTA b/l. Monitoring labs.
[2025-03-09 01:41] LABS: Blood Urea Nitrogen 31 mg/dl (9-20); Calcium 8.7 mg/dl (8.4-10.2); Carbon Dioxide 29 mmol/L (22-30); Chloride 92 mmol/L (98-107); Estimated Creatinine Clearance 61 ml/min; Glucose 115 mg/dl (70-99); Magnesium 2.5 mg/dl (1.6-2.3); Potassium 3.4 mmol/L (3.5-5.1); Sodium 130 mmol/L (135-145); eGFR 51.61
[2025-03-09 03:00] VITALS: BP 132/88
[2025-03-09] MEDS: NSS 1000 IV ×2 (03:07→10:18)
[2025-03-09] MEDS: HALDOL 1 MG IV (03:29)
--- NOTE | 2025-03-09 06:30 | PTCARENOTE ---
TT to [facility], covering house, for prolonged QTc. Stew cox. Cat prn for nausea ordered.
[2025-03-09 07:32] VITALS: BP 129/71
[2025-03-09] MEDS: TIGAN 200 MG IM (08:14)
[2025-03-09 08:31] LABS: Hematocrit 38.0 % (39.0-52.0); Hemoglobin 13.7 g/dL (13.0-18.0); Mean Corp Hgb Conc. 36.1 g/dL (33.0-37.0); Mean Corpuscular Volume 82.4 fL (80.0-94.0); Platelet Count 249 10^3/uL (130-400); Red Cell Dist. Width 12.9 % (11.5-14.5)
--- NOTE | 2025-03-09 09:05 | W.PN.HOSP.TC ---
Today's Communication/Plan
-
Episode of prolonged QTc, Haldol switched to Tigan
Creatinine improved to 1.1
Repeat EKG
Replete electrolytes as needed
Assessment / Plan
Assessment / Plan
29-year-old with chronic and opioid abuse who visits in the past returns for intractable nausea and dehydration beginning on Tuesday 03/06 this week. He has had 13 emergency visits and 5 admissions for the same, including 9 previous AKIs in the past 3
years. Nausea has occurred essentially every 2 hours even waking him up from sleep. He tries to eat and drink but this continues to be vomited. He has taken no ajqo-umc-iysopso medications. He developed no lightheadedness or weakness. It was
abdominal pain from vomiting prompted his ER visit. Here he was noted to have acute kidney injury with a creatinine of 6.8 hyponatremia, hypokalemia, significant hypotension. He also had metabolic alkalosis. On admission WBC 39.8, Neut 82.2, Na+
127, K+ 3.0, HCO3 19, BUN 59, Creat 6.8, est CrCl 14, eGFR 10.47, Lactic 6.3, Tot Bili 1.5, AST 94, ALT 143, Tot protein 10.3, Albumin >6.0, VBG showed a pH of 7.5, [id number], PO277, HCO3 26. He did receive 2.5 L of saline in the emergency room, EKG
showed sinus tachycardia with right atrial enlargement right axis deviation and pulmonary disease pattern.. In the hospital he was given aggressive IV fluid rehydration, his electrolytes were repleted, and he was given Haldol for antinausea. He
had an episode of prolonged QT, and Haldol was stopped and patient was switched over to Tigan. His lab abnormalities continue to improve.
#acute kidney injury likely 2/2 cannabinoid hyperemesis
# Metabolic alkalosis, uncompensated
Creatinine 6.8 on admission, now 1.1
Appreciate nephro recs
- NSS 125cc/hr
- monitor labs closely, has had correction with aggressive IVF in past
- Haldol PRN for antiemetic
- Telemetry, repeat EKG to monitor QTc
- encourage cannabis cessation
Haldol switched to Tigan
Replete electrolytes as needed K3.4 Mg 2.5
Famotidine as needed
#Anxiety
Continue to monitor
Outpatient follow-up
DVT prophylaxis:
SCDs
Code status:
Full code
Anticipated Discharge: 24 - 48 hours
Subjective/Interval History
-
Patient was seen at bedside. He reported vomiting several times overnight, but much improved from earlier in the week. He is tolerating sips of liquids. He did have an episode of prolonged QT after administration of Haldol, but no other
abnormalities on telemetry. He reported no chest pain or palpitations but mild shortness of breath. His abdominal pain is much improved but still is uncomfortable with nausea. Date of Service: March 09, 2025
Objective Data
-
Labs:
Laboratory Results
03/09/25 03/09/25
01:21 07:29
WBC 25.5 H
Hgb 13.7 D
Hct 38.0 L
Plt Count 249 D
Sodium 130 L Pending
Potassium 3.4 L Pending
Chloride 92 L Pending
Carbon Dioxide 29 Pending
BUN 31 H Pending
Creatinine 1.8 H Pending
Glucose 115 H Pending
Calcium 8.7 Pending
Total Bilirubin Pending
AST Pending
ALT Pending
Alkaline Phosphatase Pending
Vital Signs:
Vital Signs
Temp Pulse Resp BP Pulse Ox
98.4 F 97 18 132/88 97
03/09/25 03:00 03/09/25 03:00 03/09/25 03:00 03/09/25 03:00 03/09/25 03:00
I&O
03/08/25 03/09/25 03/10/25
06:59 06:59 06:59
Intake Total 2219 / 2219
Output Total 2575 / 257
Balance -355 / -355
Review of Systems
-
History Source: Patient
Constitutional: Reports Sleep Disturbance; Denies Fever or Fatigue
EENT: Reports No Symptoms Reported; Denies Runny Nose
Respiratory: Reports Trouble Breathing (Mild shortness of breath); Denies Cough
Cardiac: Reports No Symptoms; Denies Chest Pain or Palpitations
Abdomen/GI: Reports Nausea and Vomiting; Denies Abdominal Pain, Diarrhea or Constipated
Genitourinary: Reports No Symptoms; Denies Dysuria
Musculoskeletal: Reports No Symptoms; Denies Joint Pain
Skin: Reports No Symptoms; Denies Itching or Rash
Neuro: Denies Dizzy or Weakness
Physical Exam
-
General: Well Developed and Well Nourished; Negative Comfortable
HEENT: Normocephalic and Other (Nodule present on right forehead); Negative Atraumatic
Respiratory: Clear to Auscultation; Negative Wheezes or Crackles
Cardiac: Regular Rhythm, S1/S2 and Tachycardic; Negative Murmur or Rub
GI: Soft, Nontender, Nondistended and Normal Bowel Sounds
Musculoskeletal: No Clubbing, No Cyanosis and No Edema
Skin: Warm and Dry
Neuro: Awake, Alert and Oriented
Psych: Agitated
[2025-03-09 09:14] LABS: ALT (SGPT) 94 U/L (0-50); AST (SGOT) 58 U/L (17-59); Albumin 4.3 g/dl (3.5-5.0); Alkaline Phosphatase 71 U/L (38-126); Blood Urea Nitrogen 23 mg/dl (9-20); Calcium 9.1 mg/dl (8.4-10.2); Carbon Dioxide 30 mmol/L (22-30); Chloride 94 mmol/L (98-107); Estimated Creatinine Clearance 99 ml/min; Glucose 89 mg/dl (70-99); Magnesium 2.5 mg/dl (1.6-2.3); Potassium 3.6 mmol/L (3.5-5.1); Sodium 131 mmol/L (135-145); Total Protein 6.6 g/dl (6.3-8.2); eGFR > 60.00
--- NOTE | 2025-03-09 10:55 | W.PN.NEPH.PH ---
Today's Communication / Plan
-
IV fluids
Assessment/Plan
-
Impression
Acute kidney injury
anion gap metabolic acidosis
Cannabinoid hyperemesis syndrome, recurrent
Cannabis use disorder, daily
Lactic acidosis
Hypokalemia
Hyponatremia
Hypochloremia
Elevated transaminases
Hyperbilirubinemia
Leukocytosis
Sinus tachycardia
Plan
Aggressive IV fluid resuscitation continues
Replete potassium as needed
Follow BMP
-
-
Date of Service: March 09, 2025
CC / HPI / ROS
-
Chief Complaint:
DANAE
History of Present Illness:
DANAE/creatinine down to 1.1
Sodium up to 131
Potassium normal at 3.6
WBC improving
Blood pressure stable
Review of Systems:
Still some nausea no p.o. intake
Nonoliguric
Labs
-
Labs:
WBC 25.5 10^3/uL (4.8-10.8) H 03/09/25 07:29
RBC 4.61 10^6/uL (4.70-6.10) L 03/09/25 07:29
Hgb 13.7 g/dL (13.0-18.0) D 03/09/25 07:29
Hct 38.0 % (39.0-52.0) L 03/09/25 07:29
Plt Count 249 10^3/uL (130-400) D 03/09/25 07:29
Sodium 131 mmol/L (135-145) L 03/09/25 07:29
Potassium 3.6 mmol/L (3.5-5.1) 03/09/25 07:29
Chloride 94 mmol/L (98-107) L 03/09/25 07:29
Carbon Dioxide 30 mmol/L (22-30) 03/09/25 07:29
BUN 23 mg/dl (9-20) H 03/09/25 07:29
Creatinine 1.1 mg/dL (0.7-1.3) 03/09/25 07:29
eGFR > 60.00 03/09/25 07:29
Glucose 89 mg/dl (70-99) 03/09/25 07:29
Calcium 9.1 mg/dl (8.4-10.2) 03/09/25 07:29
Albumin 4.3 g/dl (3.5-5.0) D 03/09/25 07:29
Physical Exam
-
Vital Signs:
Vital Signs
Temp Pulse Resp BP Pulse Ox
98.1 F 87 18 129/71 97
03/09/25 07:32 03/09/25 07:32 03/09/25 07:32 03/09/25 07:32 03/09/25 07:32
Cardiovascular:: Regular rate and rhythm
Respiratory:: Bilateral: CTA
Lung Excursion:: Normal
Abdomen:: Nontender and Soft
Bowel Sounds:: Normal
Extremity Edema:: None: Bilateral:
[2025-03-09 11:09] VITALS: BP 160/80
[2025-03-09] MEDS: PEPCID 20 MG PO (11:21)
--- NOTE | 2025-03-09 13:49 | CM ---
CM reviewed chart, patient seen bedside, initial assessment completed. Patient resides with his father in a single story home. Patient is independent with ADLs/IADLs. PCP confirmed Eugene Connolly, [facility]. Patient denies needs
upon discharge. CM will continue to follow for all discharge planning needs.
Plan; home when stable
[2025-03-09] MEDS: BENADRYL 25 MG PO (15:11)
[2025-03-09 15:29] VITALS: BP 120/70
--- NOTE | 2025-03-09 18:30 | W.DCSUMMARY ---
Documented by User: Braden Bauer MD, Resident 03/09/25 18:43
Discharge Summary
Discharge Data
Date of Admission: 03/08/25
Date of Discharge: 03/09/25
-
Pending Results: No
Hospital Course
Discharging Physician : Dr. Landry, Dr. Bauer
Disposition : Home
Primary care physician : Eugene Connolly
Principal Discharge diagnosis :
Acute renal injury
Recurrent cannabinoid hyperemesis syndrome
Chronic Discharge diagnosis :
Cannabinoid use disorder
Generalized anxiety disorder
Hospital Course :
Mr. Pena is a 29-year-old with generalized anxiety, chronic cannabinoid abuse who visits in the past returns for intractable nausea and dehydration beginning on Tuesday 03/06 this week. He has had 13 emergency visits and 5 admissions for the same,
including 9 previous AKIs in the past 3 years. Nausea has occurred essentially every 2 hours even waking him up from sleep. He tries to eat and drink but this continues to be vomited. He has taken no gjka-don-spbfsqg medications. He developed no
lightheadedness or weakness. It was abdominal pain from vomiting prompted his ER visit. Here he was noted to have acute kidney injury with a creatinine of 6.8 hyponatremia, hypokalemia, significant hypotension. He also had metabolic alkalosis. On
admission WBC 39.8, Neut 82.2, Na+ 127, K+ 3.0, HCO3 19, BUN 59, Creat 6.8, est CrCl 14, eGFR 10.47, Lactic 6.3, Tot Bili 1.5, AST 94, ALT 143, Tot protein 10.3, Albumin >6.0, VBG showed a pH of 7.5, QDA298, PO277, HCO3 26. He did receive 2.5 L of
saline in the emergency room, EKG showed sinus tachycardia with right atrial enlargement right axis deviation and pulmonary disease pattern. In the hospital he was given aggressive IV fluid rehydration, his electrolytes were repleted, and he was
given Haldol for antinausea. He had an episode of prolonged QTc 499, and Haldol was stopped and patient was switched over to Tigan. Repeat EKGs showed QTc of 472, his lab abnormalities continue to improve and he was able to tolerate food without
nausea or emesis. Repeat labs show decreased WBCs to 25, likely reactive, with no signs of infection Na 131, K3.6 chloride 94 HCO3 30 BUN 23 creatinine 1.1 indicating improvement of acid-base disorder. Patient's blood cultures grew Streptococcus
species in 1 of 2 bottles, most likely contamination. Patient requested to be discharged early, discussed with patient about risk of discharge with 1 of 2 positive blood cultures and return precautions as well as follow-up with PCP and cessation of
THC use. Patient verbalized understanding, and was medically stable for discharge.
Important imaging findings :
EKG 03/08
P-R Int : 098 ms QRS Dur : 086 ms
QT Int : 332 ms P-R-T Axes : 079 111 053 degrees
QTc Int : 499 ms
SINUS TACHYCARDIA WITH SHORT [place]
RIGHT ATRIAL ENLARGEMENT
RIGHT AXIS DEVIATION
PULMONARY DISEASE PATTERN
MARKED ST ABNORMALITY, POSSIBLE INFERIOR SUBENDOCARDIAL INJURY
ABNORMAL ECG
WHEN COMPARED WITH ECG OF 15-JAN-2025 06:22,
SIGNIFICANT CHANGES HAVE OCCURRED
EKG 03/09
P-R Int : 118 ms QRS Dur : 088 ms
QT Int : 396 ms P-R-T Axes : 050 051 024 degrees
QTc Int : 489 ms
NORMAL SINUS RHYTHM
NONSPECIFIC ST AND T WAVE ABNORMALITY
EKG 03/09
P-R Int : 116 ms QRS Dur : 092 ms
QT Int : 402 ms P-R-T Axes : 046 057 041 degrees
QTc Int : 472 ms
NORMAL SINUS RHYTHM
INCOMPLETE RIGHT BUNDLE BRANCH BLOCK
BORDERLINE ECG
WHEN COMPARED WITH ECG OF 09-MAR-2025 06:06,
NO SIGNIFICANT CHANGE WAS FOUND
Procedure findings :
Discharge Plan
-
Patient Disposition: Home (Routine Discharge)
Discharge Diagnosis/Procedures: Acute kidney injury, recurrent cannabinoid hyperemesis syndrome, metabolic alkalosis
Condition: Fair
Diet: As tolerated
Activity: No restrictions
Driving Restrictions: As prior to admission
Referrals:
Eugene Connolly MD [Family Provider, Family Practice] - in less than 1 week
Thong Mccloud MD [Active, Psychiatry]
Prescriptions:
New
ondansetron 4 mg tablet,disintegrating
4 mg PO Q8H PRN (Reason: nausea and vomiting) Qty: 10 0RF
Discontinued
potassium
1 tab PO .3-4 TIMES A WEEK PRN (Reason: supplement)
Discharge Orders:
Discharge Patient (As Directed); Ordered 03/09/25
Ordered By: Braden Bauer
Discharge Date and Time
Discharge Date/Time: 03/09/25 19:26
Print Language: MOSOT[place]

Documented by User: Vivek Landry DO 03/10/25 12:25
Discharge Summary
Discharge Data
Date of Admission: 03/08/25
Date of Discharge: 03/11/25
Total time spent discharging patient (in min): 32
Discharge Plan
-
Patient Disposition: Home (Routine Discharge)
Discharge Diagnosis/Procedures: Acute kidney injury, recurrent cannabinoid hyperemesis syndrome, metabolic alkalosis
Condition: Fair
Diet: As tolerated
Activity: No restrictions
Driving Restrictions: As prior to admission
Referrals:
Eugene Connolly MD [Family Provider, Family Practice] - in less than 1 week
Thong Mccloud MD [Active, Psychiatry]
Prescriptions:
New
ondansetron 4 mg tablet,disintegrating
4 mg PO Q8H PRN (Reason: nausea and vomiting) Qty: 10 0RF
Discontinued
potassium
1 tab PO .3-4 TIMES A WEEK PRN (Reason: supplement)
Discharge Orders:
Discharge Patient (As Directed); Ordered 03/09/25
Ordered By: Braden Bauer
Discharge Date and Time
Discharge Date/Time: 03/09/25 19:26
Print Language: [place]OT[place]
--- NOTE | 2025-03-09 18:44 | W.PN.UPDATE ---
Update Note
Progress Note Update
Nurse informed us patient wanted to be discharged home so that he could return to work tomorrow. Discussed with patient and offered to write note to work but patient insisted on discharge. Spoke with patient about 1 of 2 blood cultures returning
positive with Streptococcus species, most likely contamination. Discussed risks and benefits of discharge including return precautions and the need for follow-up with PCP, and psych. Patient verbalized understanding of risks and benefits. Also
talked with patient about home home medication of potassium, reports that he was not prescribed potassium tablets and started taking it after noticing potassium repletion during hospitalizations. Informed patient about dangers of taking potassium
without medical supervision and encouraged him to talk with his PCP about it.
[2025-03-09 19:05] VITALS: BP 130/77
== END 2025-03-09 19:26 | disposition home or self-care (01) | DRG 683 ==
LOC: 4 WEST ACU 16:43
PROVIDERS: Nurse Practitioner Family; Physician Assistant Medical; Student in an Organized Health Care Education/Training Program; ADMITTING PHYSICIAN Internal Medicine; ATTENDING PHYSICIAN Internal Medicine; EMERGENCY PHYSICIAN Emergency Medicine; FAMILY PHYSICIAN Family Medicine; OTHER PHYSICIAN Specialist
DX: N17.9 Acute kidney failure, unspecified (principal); E87.1 Hypo-osmolality and hyponatremia; E87.4 Mixed disorder of acid-base balance; E87.6 Hypokalemia; E83.52 Hypercalcemia; F41.1 Generalized anxiety disorder; F12.10 Cannabis abuse, uncomplicated
CPT/HCPCS: 80048; 80053; 80306; 81003; 81015; 82805; 83605; 83735; 85025; 85027; 87040; 87077; 87086; 87154; 87205; 93005; 96361; 96374; 96376; 99291